=== PATIENT | female | born 1985 | race Caucasian/White ===

== ENCOUNTER 2016-05-23 14:21 | Inpatient (IN) | payer MEDICAID ==
[~2016-05-23] VITALS: Ht 157.5 cm; Wt 90.2 kg
[2016-05-23] VITALS (547 sets, daily range): BP systolic 100–115; BP diastolic 68–88; PULSE 121–142; TEMP 97.6–98.7; O2SAT 65–100
[~2016-05-23 14:21] MED LIST: AMBIEN 5MG TABLE5 MG PO; ATIVAN 0.50.5 MG/TAB PO; DECADRON 1MG TAB1 MG PO; IBU400 MG PO; IPRATROPIUM BROM3 M1 IH; LEVAQUIN 750MG750 M1 PO; NORCO 325 MG-51 TAB PO; NOVLOG SQ; PEPCID 20MG TAB20 MG PO; ROXICODONE 55 MG/TAB PO; SENOKOT S 50 MG1 TAB PO; STOOL SOFTENER100 M2 PO; TAMOXIFEN CITRA20 MG PO
[2016-05-23 15:18] LABS: ALBUMIN 3.5 gm/dL (3.5-5.0); BILIRUBIN,TOTAL 1.1 mg/dL (0.0-1.0); CALCIUM 8.6 mg/dL (8.4-10.2); CREATININE, serum 0.5 mg/dL (0.52-1.25); MAGNESIUM 2.2 mg/dL (1.6-2.3); POTASSIUM 3.4 mmol/L (3.4-5.0); TOTAL PROTEIN 6.5 gm/dL (6.4-8.2)
[2016-05-23 15:28] LABS: BASO % 0.4 % (0.0-2.0); EOS % 0.3 % (0-4.0); GRAN # 5.4 (1.4-6.5); GRAN % 78.8 % (42.2-75.2); HEMATOCRIT 37.2 % (37.0-47.0); HEMOGLOBIN 12.4 g/dl (12.5-16.0); LYMPH % 14.3 % (20.0-51.0); MEAN CELL VOLUME 88 fl (80.0-100.0); MEAN CORPUSCULAR HEMOGLOBIN 29 pg (27.0-31.0); MEAN CORPUSCULAR HGB CONC 33 g/dl (33.0-37.0); MEAN PLATELET VOLUME 9.7 fl (7.4-10.4); MONO # 0.4 (0.1-0.6); MONO % 5.6 % (1.7-9.3); PLATELET COUNT 191 K/mm3 (130-400); RED BLOOD COUNT 4.24 M/mm3 (4.10-5.30); REDCELL DISTRIBUTION WIDTH-CV 14.6 % (11.5-14.5); WHITE BLOOD COUNT 6.8 K/mm3 (4.8-10.8)
[2016-05-23 15:38] LABS: INR 1.2 (0.8-3.0); PROTHROMBIN TIME 13.1 SECONDS (9.7-12.8)
[2016-05-23 15:40] LABS: PARTIAL THROMBOPLASTIN TIME 32.8 SECONDS (26.0-37.0)
[2016-05-23] MEDS ORDERED: SENOKOT8.6 MG PO (17:02)
[2016-05-23 17:17] LABS: ARTERIAL BLD GAS O2 SATURATION 92.7 % (92-100); ARTERIAL BLD GAS TCO2 CT 19.4; ARTERIAL BLOOD GAS BASE EXCESS -2.8 (-2-2); ARTERIAL BLOOD GAS HCO3 18.7 meq/L (22-26); ARTERIAL BLOOD GAS PO2 65.1 mmHg (80-100); ARTERIAL BLOOD GAS PO2T 65.1 (80-100); OXYHEMOGLOBIN 91.7 %
[2016-05-23 17:19] LABS: ATS? YES
[2016-05-23 19:50] LABS: PH 7 (5-8); SQUAMOUS EPITHELIAL 0-2 /hpf; URINE APPEARANCE Clear; URINE BACTERIA None Seen /hpf; URINE BILIRUBIN Negative (NEGATIVE); URINE BLOOD Negative (NEGATIVE); URINE COLOR Straw; URINE GLUCOSE Negative (NEGATIVE); URINE KETONE Negative (NEGATIVE); URINE RBC 0-2 /hpf; URINE UROBILINOGEN Negative (NEGATIVE); URINE WBC 0-2 /hpf
[2016-05-24] VITALS (1403 sets, daily range): BP systolic 99–134; BP diastolic 58–98; PULSE 111–126; TEMP 97–98.2; O2SAT 44–100
[2016-05-25] VITALS (1410 sets, daily range): BP systolic 113–138; BP diastolic 77–87; PULSE 110–125; TEMP 99–99.6; O2SAT 76–100
[2016-05-25 05:38] LABS: MEAN CELL VOLUME 90 fl (80.0-100.0); MEAN CORPUSCULAR HGB CONC 32 g/dl (33.0-37.0); MEAN PLATELET VOLUME 9.4 fl (7.4-10.4); PLATELET COUNT 181 K/mm3 (130-400); REDCELL DISTRIBUTION WIDTH-CV 14.5 % (11.5-14.5); WHITE BLOOD COUNT 5.5 K/mm3 (4.8-10.8)
[2016-05-25 05:57] LABS: HEMATOCRIT 36.7 % (37.0-47.0); HEMOGLOBIN 11.8 g/dl (12.5-16.0); MEAN CORPUSCULAR HEMOGLOBIN 29 pg (27.0-31.0)
[2016-05-25 06:06] LABS: ADJUSTED CALCIUM 9.4 mg/dL (8.4-10.2); ALBUMIN 3.3 gm/dL (3.5-5.0); BILIRUBIN,TOTAL 0.8 mg/dL (0.0-1.0); CALCIUM 8.8 mg/dL (8.4-10.2); CREATININE, serum 0.46 mg/dL (0.52-1.25); POTASSIUM 4.2 mmol/L (3.4-5.0); TOTAL PROTEIN 6.3 gm/dL (6.4-8.2)
[2016-05-26] VITALS (769 sets, daily range): BP systolic 94–128; BP diastolic 52–90; PULSE 103–120; TEMP 98.1–99.3; O2SAT 82–100
[2016-05-27] VITALS (9 sets, daily range): BP systolic 77–138; BP diastolic 50–90; PULSE 107–121; TEMP 97.8–98.6
[2016-05-27 09:57] LABS: CALCIUM 8.8 mg/dL (8.4-10.2); CREATININE, serum 0.55 mg/dL (0.52-1.25); POTASSIUM 3.5 mmol/L (3.4-5.0)
[2016-05-27 10:06] LABS: BASO % 0.2 % (0.0-2.0); EOS # 0.1 (0.0-0.7); GRAN # 3.7 (1.4-6.5); GRAN % 71.2 % (42.2-75.2); LYMPH # 1.1 (1.2-3.4); LYMPH % 21.6 % (20.0-51.0); MEAN CELL VOLUME 89 fl (80.0-100.0); MEAN CORPUSCULAR HGB CONC 33 g/dl (33.0-37.0); MEAN PLATELET VOLUME 9.9 fl (7.4-10.4); MONO # 0.3 (0.1-0.6); PLATELET COUNT 178 K/mm3 (130-400); REDCELL DISTRIBUTION WIDTH-CV 13.9 % (11.5-14.5); WHITE BLOOD COUNT 5.2 K/mm3 (4.8-10.8)
[2016-05-27 10:19] LABS: HEMATOCRIT 35.4 % (37.0-47.0); HEMOGLOBIN 11.8 g/dl (12.5-16.0); MEAN CORPUSCULAR HEMOGLOBIN 30 pg (27.0-31.0)
[2016-05-28 04:16] VITALS: BP 115/62; PULSE 104; TEMP 98.7
[2016-05-28 07:22] VITALS: BP 120/82; PULSE 117; TEMP 98.6
[2016-05-28 12:04] VITALS: BP 125/78; PULSE 121; TEMP 97.9
[2016-05-28 16:34] VITALS: BP 125/73; PULSE 119; TEMP 97.9
[2016-05-28 19:41] VITALS: BP 118/78; PULSE 110; TEMP 97.7
[2016-05-28 23:24] VITALS: BP 129/44; PULSE 114; TEMP 98.7
[2016-05-29 04:28] VITALS: BP 110/63; PULSE 105; TEMP 98.2
[2016-05-29 08:10] VITALS: BP 115/64; PULSE 109; TEMP 97.9
[2016-05-29 12:03] VITALS: BP 135/93; PULSE 116; TEMP 98.4
[2016-05-29] MEDS ORDERED: ELIQUIS 5MG PO (14:58)
== END 2016-05-29 18:45 | disposition home or self-care (01) | DRG 176 ==
LOC: ICU 14:21 → MEDICAL 05-26 13:19
PROVIDERS: Family Medicine
DX: I26.99 Other pulmonary embolism without acute cor pulmonale (principal); I82.433 Acute embolism and thrombosis of popliteal vein, bilateral; C79.51 Secondary malignant neoplasm of bone; C79.31 Secondary malignant neoplasm of brain; C50.911 Malignant neoplasm of unspecified site of right female breast; E87.6 Hypokalemia; R73.9 Hyperglycemia, unspecified; E66.1 Drug-induced obesity; T38.0X5A Adverse effect of glucocorticoids and synthetic analogues, initial encounter
CPT/HCPCS: 99223-AI; 99232-AI; 99233-AI; 99239; J1644; J1650; J7614; J8540

== ENCOUNTER → 2016-05-25 | Outpatient (REF) ==
[~2016-05-25] MED LIST changes: +ACULAR 10 ML10 ML OU; +CALCIUM WITH D31 CTB; +DIAMOX 250MG250 MG PO; +EFFEXOR XR37.5 MG/CA PO; +ELIQUIS 5MG PO; +LANOXIN 0.25M0.25 MG PO; +NORCO 325 MG-101 TAB PO; +OMNIPRED 5 ML5 ML; +PROTONIX20 MG PO; +SENOKOT8.6 MG PO; +SINEQUAN 2525 MG/CAP PO; +ZOLADEX SQ; +ZOMETA4 MG/5 ML IV
== END ==
LOC: ZAIV 06:00
DX: Z02.89 Encounter for other administrative examinations (principal)

== ENCOUNTER → 2016-07-25 | Outpatient (CLI) | payer MEDICAID | LOC: COL.VAS 12:06 | DX: M79.89 Other specified soft tissue disorders (principal) ==

== ENCOUNTER → 2016-07-31 | Outpatient (CLI) | payer MEDICAID | LOC: COL.RAD 07:30 | DX: J90 Pleural effusion, not elsewhere classified (principal); I31.3 Pericardial effusion (noninflammatory); R91.8 Other nonspecific abnormal finding of lung field; C50.111 Malignant neoplasm of central portion of right female breast | CPT/HCPCS: Q9967 ==

== ENCOUNTER → 2016-08-11 | Outpatient (CLI) | payer MEDICAID | LOC: COL.VAS 09:31 | DX: R06.02 Shortness of breath (principal) ==

== ENCOUNTER → 2016-09-21 | Outpatient (CLI) | payer MEDICAID | LOC: COL.RAD 09:30 | DX: C50.011 Malignant neoplasm of nipple and areola, right female breast (principal); C79.31 Secondary malignant neoplasm of brain; C79.52 Secondary malignant neoplasm of bone marrow | CPT/HCPCS: A9585 ==

== ENCOUNTER 2016-12-04 08:12 | Inpatient (IN) | payer MEDICAID ==
[~2016-12-04] VITALS: Ht 157.5 cm; Wt 74.4 kg
[2016-12-04] VITALS (270 sets, daily range): BP systolic 109–135; BP diastolic 61–94; PULSE 115–122; TEMP 97.9–98.4; O2SAT 71–98
[~2016-12-04 08:12] MED LIST changes: -ACULAR 10 ML10 ML OU; -CALCIUM WITH D31 CTB; -DIAMOX 250MG250 MG PO; -EFFEXOR XR37.5 MG/CA PO; -LANOXIN 0.25M0.25 MG PO; -NORCO 325 MG-101 TAB PO; -OMNIPRED 5 ML5 ML; -PROTONIX20 MG PO; -SINEQUAN 2525 MG/CAP PO; -ZOLADEX SQ; -ZOMETA4 MG/5 ML IV
[2016-12-04 09:58] LABS: VENOUS BLOOD GAS SAO2 83.5 % (60-80)
[2016-12-04 09:59] LABS: VENOUS BLOOD GAS SITE VENIPUNCTURE
[2016-12-04 10:06] LABS: BASO % 0.4 % (0.0-2.0); EOS % 0.7 % (0-4.0); GRAN # 3.8 (1.4-6.5); HEMOGLOBIN 12.2 g/dl (12.5-16.0); LYMPH # 1.2 (1.2-3.4); LYMPH % 21.4 % (20.0-51.0); MEAN CELL VOLUME 82 fl (80.0-100.0); MEAN CORPUSCULAR HEMOGLOBIN 27 pg (27.0-31.0); MEAN CORPUSCULAR HGB CONC 33 g/dl (33.0-37.0); MEAN PLATELET VOLUME 9.3 fl (7.4-10.4); MONO # 0.5 (0.1-0.6); MONO % 8.8 % (1.7-9.3); PLATELET COUNT 249 K/mm3 (130-400); RED BLOOD COUNT 4.49 M/mm3 (4.10-5.30); REDCELL DISTRIBUTION WIDTH-CV 14.7 % (11.5-14.5); WHITE BLOOD COUNT 5.6 K/mm3 (4.8-10.8)
[2016-12-04 10:12] LABS: ADJUSTED CALCIUM 9.1 mg/dL (8.4-10.2); ALBUMIN 3.5 gm/dL (3.5-5.0); BILIRUBIN,TOTAL 0.9 mg/dL (0.0-1.0); CALCIUM 8.7 mg/dL (8.4-10.2); CREATININE, serum 0.59 mg/dL (0.52-1.25); TOTAL PROTEIN 6.7 gm/dL (6.4-8.2)
[2016-12-04 10:22] LABS: INR 2.9 (0.8-3.0); PROTHROMBIN TIME 33.3 SECONDS (9.7-12.8)
[2016-12-04] MEDS ORDERED: PROTONIX20 MG PO (10:39)
[2016-12-04] MEDS ORDERED: CALCIUM WITH D31 CTB (10:40)
[2016-12-04] MEDS ORDERED: EFFEXOR XR37.5 MG/CA PO (10:40)
[2016-12-04] MEDS ORDERED: SINEQUAN 2525 MG/CAP PO (10:41)
[2016-12-04] MEDS ORDERED: NORCO 325 MG-101 TAB PO (10:41)
[2016-12-04] MEDS ORDERED: OMNIPRED 5 ML5 ML (10:43)
[2016-12-04] MEDS ORDERED: ZOMETA4 MG/5 ML IV (10:45)
[2016-12-04] MEDS ORDERED: ZOLADEX SQ (10:46)
[2016-12-04 15:19] LABS: MAGNESIUM 2.2 mg/dL (1.6-2.3)
[2016-12-04] MEDS ORDERED: ACULAR 10 ML10 ML OU (15:37)
[2016-12-04 22:26] LABS: PROTHROMBIN TIME 22.5 SECONDS (9.7-12.8)
[2016-12-05] VITALS (904 sets, daily range): BP systolic 110–129; BP diastolic 67–98; PULSE 107–122; TEMP 97.4–99.4; O2SAT 73–100
[2016-12-05 05:27] LABS: BASO % 0.4 % (0.0-2.0); EOS % 0.7 % (0-4.0); GRAN # 3.7 (1.4-6.5); GRAN % 69.2 % (42.2-75.2); LYMPH # 1.1 (1.2-3.4); LYMPH % 20.5 % (20.0-51.0); MEAN CELL VOLUME 85 fl (80.0-100.0); MEAN CORPUSCULAR HGB CONC 32 g/dl (33.0-37.0); MONO # 0.5 (0.1-0.6); MONO % 8.8 % (1.7-9.3); PLATELET COUNT 229 K/mm3 (130-400); RED BLOOD COUNT 4.32 M/mm3 (4.10-5.30); WHITE BLOOD COUNT 5.4 K/mm3 (4.8-10.8)
[2016-12-05 05:28] LABS: HEMATOCRIT 36.5 % (37.0-47.0); HEMOGLOBIN 11.6 g/dl (12.5-16.0); MEAN CORPUSCULAR HEMOGLOBIN 27 pg (27.0-31.0)
[2016-12-05 05:36] LABS: CALCIUM 8.7 mg/dL (8.4-10.2); CREATININE, serum 0.6 mg/dL (0.52-1.25); POTASSIUM 3.9 mmol/L (3.4-5.0)
[2016-12-05 07:32] LABS: PH 6 (5-8); URINE APPEARANCE Hazy; URINE BACTERIA None Seen /hpf; URINE BILIRUBIN Negative (NEGATIVE); URINE BLOOD Negative (NEGATIVE); URINE COLOR Yellow; URINE GLUCOSE Negative (NEGATIVE); URINE KETONE 2+ (NEGATIVE); URINE RBC 0-2 /hpf; URINE UROBILINOGEN Negative (NEGATIVE)
[2016-12-05 10:20] LABS: INR 1.5 (0.8-3.0); PROTHROMBIN TIME 17.3 SECONDS (9.7-12.8)
[2016-12-05 10:22] LABS: PARTIAL THROMBOPLASTIN TIME 32.3 SECONDS (26.0-37.0)
[2016-12-05 11:12] LABS: GLUCOSE,PLEURAL FLUID 89 mg/dL
[2016-12-05 11:17] LABS: PLEURAL FLUID - PMN 5.9 % (0-25)
[2016-12-05 13:00] LABS: PLEURAL FLUID COLOR AMBER
[2016-12-05 13:01] LABS: PLEURAL FLUID APPEARANCE CLOUDY
[2016-12-05 20:03] LABS: PLEURAL FLUID TUBE #1
[2016-12-06] VITALS (286 sets, daily range): BP systolic 108–133; BP diastolic 69–84; PULSE 106–118; TEMP 98–98.8; O2SAT 64–100
[2016-12-06 05:33] LABS: BASO % 0.2 % (0.0-2.0); GRAN # 3.4 (1.4-6.5); GRAN % 73.3 % (42.2-75.2); LYMPH # 0.9 (1.2-3.4); LYMPH % 19.1 % (20.0-51.0); MEAN CELL VOLUME 83 fl (80.0-100.0); MEAN CORPUSCULAR HGB CONC 32 g/dl (33.0-37.0); MEAN PLATELET VOLUME 9.3 fl (7.4-10.4); MONO # 0.3 (0.1-0.6); PLATELET COUNT 241 K/mm3 (130-400); RED BLOOD COUNT 4.37 M/mm3 (4.10-5.30); REDCELL DISTRIBUTION WIDTH-CV 14.6 % (11.5-14.5); WHITE BLOOD COUNT 4.7 K/mm3 (4.8-10.8)
[2016-12-06 05:37] LABS: HEMATOCRIT 36.4 % (37.0-47.0); HEMOGLOBIN 11.6 g/dl (12.5-16.0); MEAN CORPUSCULAR HEMOGLOBIN 27 pg (27.0-31.0)
[2016-12-06 05:45] LABS: ADJUSTED CALCIUM 9.3 mg/dL (8.4-10.2); ALBUMIN 3.1 gm/dL (3.5-5.0); BILIRUBIN,TOTAL 0.8 mg/dL (0.0-1.0); CALCIUM 8.6 mg/dL (8.4-10.2); CREATININE, serum 0.53 mg/dL (0.52-1.25); POTASSIUM 3.9 mmol/L (3.4-5.0); TOTAL PROTEIN 6.3 gm/dL (6.4-8.2)
[2016-12-07 03:20] VITALS: BP 113/71; PULSE 105; TEMP 98.9
[2016-12-07 07:55] VITALS: BP 88/38; PULSE 96; TEMP 98.8
[2016-12-07 10:00] VITALS: BP 118/81
[2016-12-07 15:33] VITALS: BP 92/35; PULSE 111; TEMP 99.3
[2016-12-07 20:21] VITALS: BP 112/71; PULSE 115; TEMP 99.1
[2016-12-07 23:51] VITALS: BP 97/58; PULSE 107; TEMP 99.4
[2016-12-08] VITALS (7 sets, daily range): BP systolic 99–135; BP diastolic 47–99; PULSE 94–111; TEMP 97.3–98.7
[2016-12-09 02:59] VITALS: BP 132/86; PULSE 95; TEMP 99.3
[2016-12-09 07:36] VITALS: BP 112/75; PULSE 93; TEMP 99
[2016-12-09] MEDS ORDERED: DIAMOX 250MG250 MG PO (11:08)
[2016-12-09] MEDS ORDERED: LANOXIN 0.25M0.25 MG PO (11:08)
[2016-12-09 12:27] VITALS: BP 97/68; PULSE 106; TEMP 97.9
[2016-12-09 12:30] VITALS: BP 104/88; PULSE 96
== END 2016-12-09 13:20 | disposition home or self-care (01) | DRG 189 ==
LOC: COL.ER 08:12 → MEDICAL 13:27 → ICU 13:27 → COL.ER 13:27 → MEDICAL 12-06 15:21 → ICU 12-06 15:21 → MEDICAL 12-06 15:21
PROVIDERS: Emergency Medicine; Internal Medicine Pulmonary Disease; Physician Assistant
PROC: 0W9B3ZX Drainage of Left Pleural Cavity, Percutaneous Approach, Diagnostic (ICD-10-PCS; principal; 2016-12-05)
PROC: 0B9P30Z Drainage of Left Pleura with Drainage Device, Percutaneous Approach (ICD-10-PCS; 2016-12-09)
DX: J96.01 Acute respiratory failure with hypoxia (principal); J91.0 Malignant pleural effusion; C78.02 Secondary malignant neoplasm of left lung; C79.51 Secondary malignant neoplasm of bone; C79.31 Secondary malignant neoplasm of brain; Z86.711 Personal history of pulmonary embolism; E87.6 Hypokalemia; C50.919 Malignant neoplasm of unspecified site of unspecified female breast
CPT/HCPCS: 99223-AI; 99231-AI; 99232-AI; 99233-AI; 99239; A7048; A9284; C1729; J1644; J1650; J2250; J2405; J2704; J3010; J3480; J7120; J7512; Q9967

== ENCOUNTER → 2016-12-14 | Outpatient (CLI) | payer MEDICAID ==
[~2016-12-14] MED LIST changes: +ACULAR 10 ML10 ML OU; +CALCIUM WITH D31 CTB; +DIAMOX 250MG250 MG PO; +EFFEXOR XR37.5 MG/CA PO; +LANOXIN 0.25M0.25 MG PO; +NORCO 325 MG-101 TAB PO; +OMNIPRED 5 ML5 ML; +PROTONIX20 MG PO; +SINEQUAN 2525 MG/CAP PO; +ZOLADEX SQ; +ZOMETA4 MG/5 ML IV
== END ==
LOC: COL.CARD 12:54
DX: C50.111 Malignant neoplasm of central portion of right female breast (principal)

== ENCOUNTER → 2016-12-19 | Outpatient (CLI) | payer MEDICAID | LOC: COL.RAD 15:00 | DX: J38.01 Paralysis of vocal cords and larynx, unilateral (principal); C79.51 Secondary malignant neoplasm of bone; J90 Pleural effusion, not elsewhere classified; Z85.3 Personal history of malignant neoplasm of breast | CPT/HCPCS: Q9967 ==

== ENCOUNTER → 2016-12-28 | Outpatient (CLI) | payer MEDICAID | LOC: COL.CARD 11:17 | DX: C50.919 Malignant neoplasm of unspecified site of unspecified female breast (principal); Z51.11 Encounter for antineoplastic chemotherapy ==

== ENCOUNTER → 2017-01-11 | Outpatient (CLI) | payer MEDICAID | LOC: COL.CARD 11:20 | DX: C50.011 Malignant neoplasm of nipple and areola, right female breast (principal); C79.51 Secondary malignant neoplasm of bone; C79.52 Secondary malignant neoplasm of bone marrow; C79.31 Secondary malignant neoplasm of brain; J90 Pleural effusion, not elsewhere classified; Z79.899 Other long term (current) drug therapy | CPT/HCPCS: A9585; J1644 ==

== ENCOUNTER 2017-01-31 08:54 | Outpatient (RCR) | payer MEDICAID ==
[~2017-01-31 08:54] MED LIST changes: -CALCIUM WITH D31 CTB; +CALCIUM WITH D31 CTB PO; -OMNIPRED 5 ML5 ML; +OMNIPRED 5 ML5 ML OU
[2017-03-20] MEDS ORDERED: KEPPRA 500MG500 MG PO (11:36)
[2017-03-20] MEDS ORDERED: ATIVAN 0.50.5 MG/TAB PO (11:37)
[2017-03-20] MEDS ORDERED: DECADRON 4MG TAB4 MG PO (11:38)
[2017-03-20] MEDS ORDERED: CLARITIN 1010 MG/TAB PO (11:39)
[2017-03-20] MEDS ORDERED: EFFEXOR XR75 MG/CAP PO (11:39)
[2017-03-20] MEDS ORDERED: REGLAN 10MG10 MG/TAB PO (11:40)
[2017-03-20] MEDS ORDERED: AMBIEN 10MG10 MG PO (11:43)
[2017-03-22] MEDS ORDERED: FOLIC ACID 11 MG/TA1 PO (14:37)
[2017-03-22] MEDS ORDERED: CEPHALEXIN500 M1 PO (14:38)
[2017-03-22] MEDS ORDERED: PREDNISONE20 MG PO (14:46)
[2017-04-16] MEDS ORDERED: ELIQUIS 5MG PO (08:37)
[2017-04-16] MEDS ORDERED: KEPPRA 500MG500 MG PO (08:38)
[2017-04-16] MEDS ORDERED: DECADRON 1MG TAB1 MG PO (08:40)
[2017-04-16] MEDS ORDERED: EFFEXOR 75M75 MG/TAB PO (08:40)
[2017-04-16] MEDS ORDERED: FOLIC ACID 11 MG/TA1 PO (08:41)
[2017-04-16] MEDS ORDERED: AMBIEN 10MG10 MG PO (08:42)
[2017-04-16] MEDS ORDERED: ATIVAN 0.50.5 MG/TAB PO (08:46)
[2017-04-16] MEDS ORDERED: REGLAN 10MG10 MG/TAB PO (08:46)
== END 2017-05-01 | disposition home or self-care (01) ==
LOC: WSST
DX: R13.10 Dysphagia, unspecified (principal); R49.0 Dysphonia; J38.01 Paralysis of vocal cords and larynx, unilateral; Z85.3 Personal history of malignant neoplasm of breast

== ENCOUNTER → 2017-02-22 | Outpatient (CLI) | payer MEDICAID ==
[~2017-02-22] MED LIST changes: +CALCIUM WITH D31 CTB; -CALCIUM WITH D31 CTB PO; +OMNIPRED 5 ML5 ML; -OMNIPRED 5 ML5 ML OU
== END ==
LOC: COL.RAD 12:30
DX: C79.31 Secondary malignant neoplasm of brain (principal); C79.52 Secondary malignant neoplasm of bone marrow; C50.011 Malignant neoplasm of nipple and areola, right female breast; G93.6 Cerebral edema
CPT/HCPCS: A9585

== ENCOUNTER → 2017-02-26 | Outpatient (CLI) | payer MEDICAID ==
[~2017-02-26] MED LIST changes: +AMBIEN 10MG10 MG PO; -CALCIUM WITH D31 CTB; +CALCIUM WITH D31 CTB PO; +CEPHALEXIN500 M1 PO; +CLARITIN 1010 MG/TAB PO; +DECADRON 4MG TAB4 MG PO; +EFFEXOR XR75 MG/CAP PO; +FOLIC ACID 11 MG/TA1 PO; +KEPPRA 500MG500 MG PO; -OMNIPRED 5 ML5 ML; +OMNIPRED 5 ML5 ML OU; +PREDNISONE20 MG PO; +REGLAN 10MG10 MG/TAB PO
== END ==
LOC: COL.CARD 10:30
DX: I49.9 Cardiac arrhythmia, unspecified (principal); C50.111 Malignant neoplasm of central portion of right female breast

== ENCOUNTER → 2017-04-16 | Day surgery (SDC) | payer MEDICAID ==
[~2017-04-16] VITALS: Ht 157.5 cm; Wt 85.2 kg
[~2017-04-16] MED LIST changes: +EFFEXOR 75M75 MG/TAB PO
[2017-04-16 08:24] VITALS: BP 118/72; PULSE 99; TEMP 98
[2017-04-16 09:47] VITALS: BP 108/64; PULSE 105
[2017-04-16 10:00] VITALS: BP 107/66; PULSE 105
[2017-04-16 10:24] VITALS: BP 110/77
[2017-04-16 10:41] VITALS: PULSE 114
== END ==
LOC: SDCO 07:36
DX: Z45.2 Encounter for adjustment and management of vascular access device (principal); C78.00 Secondary malignant neoplasm of unspecified lung; C77.3 Secondary and unspecified malignant neoplasm of axilla and upper limb lymph nodes; C77.5 Secondary and unspecified malignant neoplasm of intrapelvic lymph nodes; C77.2 Secondary and unspecified malignant neoplasm of intra-abdominal lymph nodes; C79.51 Secondary malignant neoplasm of bone; C79.31 Secondary malignant neoplasm of brain; F32.9 Major depressive disorder, single episode, unspecified; E44.1 Mild protein-calorie malnutrition; D64.9 Anemia, unspecified; D72.819 Decreased white blood cell count, unspecified; Z79.01 Long term (current) use of anticoagulants; Z85.3 Personal history of malignant neoplasm of breast; Z86.711 Personal history of pulmonary embolism; Z82.3 Family history of stroke

== ENCOUNTER → 2017-05-10 | Outpatient (CLI) | payer MEDICAID | LOC: COL.CARD 13:48 | DX: I49.9 Cardiac arrhythmia, unspecified (principal); G40.409 Other generalized epilepsy and epileptic syndromes, not intractable, without status epilepticus ==

== ENCOUNTER → 2017-06-14 | Outpatient (CLI) | payer MEDICAID | LOC: COL.RAD 09:43 | DX: C79.51 Secondary malignant neoplasm of bone (principal); C78.7 Secondary malignant neoplasm of liver and intrahepatic bile duct; C50.111 Malignant neoplasm of central portion of right female breast; R91.8 Other nonspecific abnormal finding of lung field | CPT/HCPCS: Q9967 ==

== ENCOUNTER → 2017-08-15 | Outpatient (CLI) | payer MEDICAID | LOC: COL.RAD 08:07 | DX: R13.13 Dysphagia, pharyngeal phase (principal) ==

== ENCOUNTER 2017-08-28 14:45 | Outpatient (RCR) | payer MEDICAID | END 2017-11-04 | disposition home or self-care (01) | LOC: WSST | DX: R13.12 Dysphagia, oropharyngeal phase (principal) ==

== ENCOUNTER → 2017-09-06 | Outpatient (CLI) | payer MEDICAID | LOC: COL.RAD 09:42 | DX: C78.02 Secondary malignant neoplasm of left lung (principal); C78.01 Secondary malignant neoplasm of right lung; J91.8 Pleural effusion in other conditions classified elsewhere; C79.51 Secondary malignant neoplasm of bone; C78.7 Secondary malignant neoplasm of liver and intrahepatic bile duct; N63.31 Unspecified lump in axillary tail of the right breast; C50.919 Malignant neoplasm of unspecified site of unspecified female breast | CPT/HCPCS: A9585; Q9967 ==

== ENCOUNTER → 2018-01-09 | Outpatient (CLI) | payer MEDICAID | LOC: COL.RAD 01-03 08:30 | DX: C79.51 Secondary malignant neoplasm of bone (principal); C78.7 Secondary malignant neoplasm of liver and intrahepatic bile duct; C50.111 Malignant neoplasm of central portion of right female breast; R91.8 Other nonspecific abnormal finding of lung field | CPT/HCPCS: Q9967 ==

== ENCOUNTER → 2018-04-05 | Outpatient (CLI) | payer MEDICAID | LOC: COL.RAD 10:11 | DX: C50.111 Malignant neoplasm of central portion of right female breast (principal); C79.49 Secondary malignant neoplasm of other parts of nervous system; C79.51 Secondary malignant neoplasm of bone; C78.7 Secondary malignant neoplasm of liver and intrahepatic bile duct; Z95.828 Presence of other vascular implants and grafts | CPT/HCPCS: A9585; Q9967 ==

== ENCOUNTER 2018-05-14 16:30 | Inpatient (IN) | payer MEDICAID ==
[~2018-05-14] VITALS: Ht 157.5 cm; Wt 113.3 kg
[2018-05-14 17:23] LABS: BASO % 0.2 % (0.0-2.0); EOS # 0.1 (0.0-0.7); EOS % 0.6 % (0-4.0); GRAN # 7.1 (1.4-6.5); LYMPH % 11.5 % (20.0-51.0); MEAN CELL VOLUME 90 fl (80.0-100.0); MEAN CORPUSCULAR HGB CONC 30 g/dl (33.0-37.0); MEAN PLATELET VOLUME 9.3 fl (7.4-10.4); MONO # 0.2 (0.1-0.6); MONO % 2.5 % (1.7-9.3); PLATELET COUNT 329 K/mm3 (130-400); RED BLOOD COUNT 3.49 M/mm3 (4.10-5.30); REDCELL DISTRIBUTION WIDTH-CV 19.8 % (11.5-14.5)
[2018-05-14 17:25] LABS: HEMATOCRIT 31.3 % (37.0-47.0); HEMOGLOBIN 9.4 g/dl (12.5-16.0); MEAN CORPUSCULAR HEMOGLOBIN 27 pg (27.0-31.0)
[2018-05-14 17:32] LABS: ALBUMIN 3.6 gm/dL (3.5-5.0); BILIRUBIN,TOTAL 1.1 mg/dL (0.0-1.0); CALCIUM 8.6 mg/dL (8.4-10.2); CREATININE, serum 0.77 mg/dL (0.52-1.25); POTASSIUM 4.2 mmol/L (3.4-5.0); TOTAL PROTEIN 6.5 gm/dL (6.4-8.2)
[2018-05-14 18:20] LABS: COLLECTION METHOD CATHETER
[2018-05-14 18:31] LABS: MUCOUS Present /lpf; PH 5 (5-8); SQUAMOUS EPITHELIAL 0-2 /hpf; URINE APPEARANCE Cloudy; URINE BACTERIA None Seen /hpf; URINE BILIRUBIN Positive (NEGATIVE); URINE BLOOD Negative (NEGATIVE); URINE COLOR Amber; URINE GLUCOSE Negative (NEGATIVE); URINE KETONE 1+ (NEGATIVE); URINE LEUKOCYTE ESTERASE Negative (NEGATIVE); URINE NITRATE Negative (NEGATIVE); URINE PROTEIN(semi-quant) 2+ (NEGATIVE); URINE RBC 0-2 /hpf
[2018-05-14 19:31] VITALS: BP 115/68; PULSE 112; TEMP 98.4
--- NOTE | 2018-05-14 20:00 | NUR ---
Patient up to room from ER. Ambulated to bed, steady gait. Patient states that she uses a walker when ambulating large distances but typically does not use one at home. Mother at bedside. Alert and oriented x3. Patient oriented to room, initial and 5 page complete. IV fluids and antibiotics infused to left AC. Edema noted to bilateral lower extremities. Edema and redness noted to right hand, patient notes that has been ongoing for a couple of weeks now. Jonah pain or further needs at this time.
[2018-05-14] MEDS ORDERED: NEURONTIN300 MG/CAP PO (20:11)
[2018-05-14] MEDS ORDERED: ZYRTEC5 MG PO (20:11)
[2018-05-14 23:26] VITALS: BP 103/51; PULSE 106; TEMP 98.3
[2018-05-15 05:42] VITALS: BP 102/60; PULSE 108; TEMP 98.7
--- NOTE | 2018-05-15 05:58 | NUR ---
Patient has rested well through the night. Minimal needs. IV fluids infusing via pump to right AC. Has been up to restroom, stand by assist with steady gait. Denies pain at this time. Denies further needs at this time. Will report off to day shift.
[2018-05-15 06:09] LABS: MEAN CELL VOLUME 88 fl (80.0-100.0); MEAN CORPUSCULAR HGB CONC 30 g/dl (33.0-37.0); MEAN PLATELET VOLUME 9.6 fl (7.4-10.4); PLATELET COUNT 310 K/mm3 (130-400); RED BLOOD COUNT 3.33 M/mm3 (4.10-5.30); REDCELL DISTRIBUTION WIDTH-CV 19.1 % (11.5-14.5)
[2018-05-15 06:13] LABS: HEMATOCRIT 29.3 % (37.0-47.0); HEMOGLOBIN 8.8 g/dl (12.5-16.0); MEAN CORPUSCULAR HEMOGLOBIN 26 pg (27.0-31.0)
[2018-05-15 06:19] LABS: CALCIUM 8.1 mg/dL (8.4-10.2); CREATININE, serum 0.66 mg/dL (0.52-1.25); POTASSIUM 4.2 mmol/L (3.4-5.0)
[2018-05-15 07:11] LABS: BAND 14 % (0-10); LYMPHOCYTE 4 % (20.0-51.0); METAMYELOCYTE 1 % (0-0); NEUTROPHILS 81 % (42.0-75.2)
[2018-05-15 07:13] LABS: ANISOCYTOSIS 2+; MICROCYTOSIS 2+; PLATELET ESTIMATE NORMAL (NORMAL)
[2018-05-15 07:14] LABS: STOMATOCYTE 1+; TEAR DROP CELLS 1+
[2018-05-15 07:24] VITALS: BP 136/70; PULSE 104; TEMP 98.5
--- NOTE | 2018-05-15 08:00 | NUR ---
PATIENT VERY DROWSY THIS AM AND WANTS TO SLEEP IN.
--- NOTE | 2018-05-15 09:00 | NUR ---
PATIENT MORE AWAKE NOW. VSS. DENIES C/O PAIN. 02 @ 2L PER NC WITH SATS IN MID TO UPPER 90'S. CT OF CHEST ORDERED FOR TODAY. PATIENT ON SEIZURE PRECAUTIONS FOR HX. TELE INPLACE. PATIENT HAS HX OF BREAST CA WITH METS TO BRAIN, LUNGS & BONE. LEFT CHEST PORT NOT ACCESSED. PATIENT REPORTS DIFFICULTY ACCESSING PORT AT TIMES. RIGHT AC IV INFUSING VIA PUMP. HEAD TO TOE ASSESSMENT COMPLETE.
[2018-05-15 12:15] VITALS: BP 103/52; PULSE 103; TEMP 98.9
--- NOTE | 2018-05-15 15:51 | NUR ---
SW attended clinical rounding and met with patient to discuss discharge planning. Patient lives with her parents Lashanda and Robbin in [place]. Her PCP is Dr Juli Clark and she obtains her medications from [facility] in [place]. She has all needed DME at home. There are no anticipated discharge needs at this time.
[2018-05-15 16:31] VITALS: BP 98/51; PULSE 105; TEMP 97.5
--- NOTE | 2018-05-15 19:38 | NUR ---
Pt resting in bed watching TV, talkative and appropriate with answers, shift assessments complete, left Pt bed in lowest position, call light in reach.
[2018-05-15 22:02] VITALS: BP 131/57; PULSE 98; TEMP 99
[2018-05-15 22:49] LABS: MYCOPLASMA IGM ANTIBODIES 0.32 (0.00-0.90)
[2018-05-16] VITALS (7 sets, daily range): BP systolic 100–132; BP diastolic 52–93; PULSE 94–116; TEMP 97.2–99
[2018-05-16 07:27] LABS: MEAN CELL VOLUME 90 fl (80.0-100.0); MEAN CORPUSCULAR HGB CONC 29 g/dl (33.0-37.0); MEAN PLATELET VOLUME 9.7 fl (7.4-10.4); PLATELET COUNT 330 K/mm3 (130-400); RED BLOOD COUNT 3.04 M/mm3 (4.10-5.30); REDCELL DISTRIBUTION WIDTH-CV 19.3 % (11.5-14.5)
[2018-05-16 07:34] LABS: HEMATOCRIT 27.2 % (37.0-47.0); HEMOGLOBIN 7.9 g/dl (12.5-16.0); MEAN CORPUSCULAR HEMOGLOBIN 26 pg (27.0-31.0)
[2018-05-16 07:38] LABS: CALCIUM 8.2 mg/dL (8.4-10.2); CREATININE, serum 0.77 mg/dL (0.52-1.25)
[2018-05-16 08:20] LABS: BAND 11 % (0-10); LYMPHOCYTE 16 % (20.0-51.0); METAMYELOCYTE 3 % (0-0); NEUTROPHILS 70 % (42.0-75.2)
[2018-05-16 08:21] LABS: ANISOCYTOSIS 2+; HYPOCHROMIA 1+
[2018-05-16 08:22] LABS: STOMATOCYTE 2+; TEAR DROP CELLS 1+
[2018-05-16 08:24] LABS: MICROCYTOSIS 1+; PLATELET ESTIMATE NORMAL (NORMAL)
--- NOTE | 2018-05-16 08:40 | NUR ---
Assessment complete. Pt laying in bed, alert to stimuli but drowsy from lack of sleep over night, oriented x 4. O2 at 2 L/min via NC. Breath sounds slightly diminished. BS active x 4. Pt denies pain at this time, reports slight headache with coughing. IVF's infusing per orders through left chest PAC without s/s of complications. No further needs reported. Call light in reach.
--- NOTE | 2018-05-16 08:46 | NUR ---
First visit from the armored vehicle officer. No needs right now.
--- NOTE | 2018-05-16 19:07 | NUR ---
Pt sitting up on side of bed eating supper, denies pain or needs at this time. Report with ANSON Garcia. Call light in reach.
--- NOTE | 2018-05-16 19:43 | NUR ---
PT SITTING AT BEDSIDE WITH NO C/O PAIN OR DISCOMFORT. PT JUST FINISHED EATING SUPPER AND SHE IS WATCHING TV. NO NEEDS AT THIS TIME, CALL LIGHT WITHIN REACH.
--- NOTE | 2018-05-16 22:44 | NUR ---
PT AWAKE IN BED ON HER PHONE. PT DENIES ANY PAIN OR DISCOMFORT. RESP EVEN AND UNLABORED WITH NO C/O SOB. NO NEEDS AT THIS TIME CALL LIGHT WITHIN REACH.
[2018-05-17 02:50] VITALS: BP 102/60; PULSE 106; TEMP 98.2
--- NOTE | 2018-05-17 03:10 | NUR ---
UNEVENTFUL NIGHT FOR PT. PT RESTING/SLEEPING IN BED, RESP EVEN AND UNLABORED, WITH NO S/S OF PAIN OR DISCOMFORT NOTED. CALL LIGHT WITHIN REACH.
[2018-05-17 06:01] LABS: MEAN CELL VOLUME 90 fl (80.0-100.0); MEAN CORPUSCULAR HGB CONC 30 g/dl (33.0-37.0); MEAN PLATELET VOLUME 9.9 fl (7.4-10.4); PLATELET COUNT 352 K/mm3 (130-400); RED BLOOD COUNT 2.99 M/mm3 (4.10-5.30); REDCELL DISTRIBUTION WIDTH-CV 19.4 % (11.5-14.5)
[2018-05-17 06:07] LABS: HEMATOCRIT 26.8 % (37.0-47.0); MEAN CORPUSCULAR HEMOGLOBIN 27 pg (27.0-31.0)
[2018-05-17 06:11] LABS: CALCIUM 8.3 mg/dL (8.4-10.2); CREATININE, serum 0.8 mg/dL (0.52-1.25); POTASSIUM 3.7 mmol/L (3.4-5.0)
[2018-05-17 07:00] LABS: ANISOCYTOSIS 3+; BAND 18 % (0-10); LYMPHOCYTE 14 % (20.0-51.0); NEUTROPHILS 67 % (42.0-75.2); NUCLEATED RED BLOOD CELL 6 (0-6); PLATELET ESTIMATE NORMAL (NORMAL)
[2018-05-17 07:01] LABS: MICROCYTOSIS 1+; OVALOCYTES 1+; STOMATOCYTE 2+; TEAR DROP CELLS 1+
[2018-05-17 07:02] LABS: POLYCHROMASIA 1+
[2018-05-17 07:03] LABS: HYPOCHROMIA 2+
--- NOTE | 2018-05-17 07:24 | NUR ---
Pt is sleeping soundly in bed.
[2018-05-17 07:41] VITALS: BP 126/71; PULSE 97; TEMP 98.4
--- NOTE | 2018-05-17 09:21 | NUR ---
Pt is awake and A/Ox4, sitting up on the side of the bed. She denies pain at this time. Port to left upper chest is free of complications. Resp. are even and unlabored on 3L O2 per NC. Pt awaiting breakfast, denies any other needs.
[2018-05-17] MEDS ORDERED: LEVAQUIN 750MG750 M1 PO (10:52)
--- NOTE | 2018-05-17 11:57 | NUR ---
JONATAN met with patient to discuss o2. Patient would like to use [facility] medical but is worried about the tanks being able to last as long as she may be out of the house, around 12 hours. JONATAN obtained choice form and placed on chart. JONATAN called and left a message for Roseline at [facility].
--- NOTE | 2018-05-17 16:18 | NUR ---
Pt was discharged home with O2. All discharge instructions and paperwork was reviewed with pt and Aunt who expressed understanding and had no questions. Port was deassessed, needle intact. New prescription given. Pt was escorted out of facility by staff.
== END 2018-05-17 16:20 | disposition home or self-care (01) | DRG 871 ==
LOC: COL.ER 16:30 → MEDICAL 18:26
PROVIDERS: Emergency Medicine; Family Medicine; Nurse Practitioner; Nurse Practitioner Family; ADMIT Hospitalist
DX: A41.9 Sepsis, unspecified organism (principal); J18.9 Pneumonia, unspecified organism; J96.01 Acute respiratory failure with hypoxia; C79.31 Secondary malignant neoplasm of brain; C79.51 Secondary malignant neoplasm of bone; C78.02 Secondary malignant neoplasm of left lung; C78.01 Secondary malignant neoplasm of right lung; C50.011 Malignant neoplasm of nipple and areola, right female breast; Z86.711 Personal history of pulmonary embolism; Z79.01 Long term (current) use of anticoagulants; F41.8 Other specified anxiety disorders; D64.9 Anemia, unspecified
CPT/HCPCS: 99223-AI; 99232-AI; 99239; J0692; J1100; J1644; J1956; J2185; J2405; J3010; J3370; J7030; J7050; J8540; Q9967

== ENCOUNTER 2018-06-06 17:01 | Inpatient (IN) | payer MEDICAID ==
[~2018-06-06] VITALS: Ht 154.9 cm; Wt 115.4 kg
[~2018-06-06 17:01] MED LIST changes: -EFFEXOR 75M75 MG/TAB PO; +NEURONTIN300 MG/CAP PO; +ZYRTEC5 MG PO
[2018-06-06 17:12] VITALS: BP 110/72; PULSE 113; TEMP 99.2
[2018-06-06] MEDS ORDERED: PROAIR HFA0.09 MG/AC IH (17:23)
[2018-06-06] MEDS ORDERED: LEVAQUIN 5500 MG/TA1 PO (17:23)
[2018-06-06] MEDS ORDERED: DECADRON 4MG TAB4 MG PO (17:26)
[2018-06-06] MEDS ORDERED: FENTANYL 25 MCG TD (17:30)
[2018-06-06] MEDS ORDERED: ZANTAC 150MG T150 MG PO (17:38)
--- NOTE | 2018-06-06 17:55 | NUR ---
Pt arrives to medical as a direct admission. Dr. Keller in to see patient, awaiting orders. Med list reviewed and updated with new doses since discharge. Mother at bedside. All questions answered in depth.
[2018-06-06 18:50] LABS: BASO % 0.2 % (0.0-2.0); EOS % 0.3 % (0-4.0); GRAN # 5.1 (1.4-6.5); GRAN % 84.7 % (42.2-75.2); LYMPH # 0.6 (1.2-3.4); LYMPH % 9.6 % (20.0-51.0); MEAN CELL VOLUME 83 fl (80.0-100.0); MEAN CORPUSCULAR HGB CONC 29 g/dl (33.0-37.0); MEAN PLATELET VOLUME 9.5 fl (7.4-10.4); MONO # 0.3 (0.1-0.6); MONO % 4.4 % (1.7-9.3); PLATELET COUNT 266 K/mm3 (130-400); REDCELL DISTRIBUTION WIDTH-CV 20.8 % (11.5-14.5)
[2018-06-06 18:51] LABS: HEMATOCRIT 31.7 % (37.0-47.0); HEMOGLOBIN 9.2 g/dl (12.5-16.0); MEAN CORPUSCULAR HEMOGLOBIN 24 pg (27.0-31.0)
[2018-06-06 19:01] LABS: ALBUMIN 3.8 gm/dL (3.5-5.0); BILIRUBIN,TOTAL 0.7 mg/dL (0.0-1.0); CALCIUM 8.6 mg/dL (8.4-10.2); CREATININE, serum 0.77 mg/dL (0.52-1.25); MAGNESIUM 2.4 mg/dL (1.6-2.3); POTASSIUM 3.8 mmol/L (3.4-5.0)
--- NOTE | 2018-06-06 19:16 | NUR ---
Pt resting in bed with call light within reach. IVF infusing to port accessed by Daniele StonerHybrid Car Mechanic. Denies needs at this time. Report given to ANSON Villafuerte.
[2018-06-06 19:28] VITALS: BP 135/80; PULSE 115; TEMP 98.5
--- NOTE | 2018-06-06 21:44 | NUR ---
PT REPORTED NO PAIN. SHIFT ASSESSMENT COMPLETE. NO SOA. NO NEEDS AT THIS TIME. CALL LIGHT IN REACH
[2018-06-06 23:02] LABS: COLLECTION METHOD CLEAN CATCH
[2018-06-06 23:10] LABS: MUCOUS Present /lpf; PH 6 (5-8); SQUAMOUS EPITHELIAL 0-2 /hpf; URINE APPEARANCE Clear; URINE BACTERIA None Seen /hpf; URINE BILIRUBIN Negative (NEGATIVE); URINE BLOOD Negative (NEGATIVE); URINE COLOR Yellow; URINE GLUCOSE Negative (NEGATIVE); URINE KETONE Trace (NEGATIVE); URINE LEUKOCYTE ESTERASE Negative (NEGATIVE); URINE NITRATE Negative (NEGATIVE); URINE PROTEIN(semi-quant) 1+ (NEGATIVE); URINE RBC 0-2 /hpf; URINE UROBILINOGEN Negative (NEGATIVE)
[2018-06-07] VITALS (10 sets, daily range): BP systolic 97–126; BP diastolic 43–75; PULSE 96–118; TEMP 98.5–99.2
--- NOTE | 2018-06-07 05:40 | NUR ---
pt o2 sat was 83% at 2L. increased o2 to 6L sat at 93%. will continue to monitor
--- NOTE | 2018-06-07 07:22 | NUR ---
pt on 5L o2, o2 sat 93%. no soa. no pain. pt slept throughout night, no needs at this time. call light in reach. report given to ANSON Metz
[2018-06-07 07:34] LABS: HEMATOCRIT 26.7 % (37.0-47.0); HEMOGLOBIN 7.5 g/dl (12.5-16.0); MEAN CELL VOLUME 85 fl (80.0-100.0); MEAN CORPUSCULAR HEMOGLOBIN 24 pg (27.0-31.0); MEAN CORPUSCULAR HGB CONC 28 g/dl (33.0-37.0); MEAN PLATELET VOLUME 10.1 fl (7.4-10.4); PLATELET COUNT 201 K/mm3 (130-400); RED BLOOD COUNT 3.15 M/mm3 (4.10-5.30); REDCELL DISTRIBUTION WIDTH-CV 20.7 % (11.5-14.5)
[2018-06-07 07:47] LABS: BILIRUBIN,TOTAL 0.3 mg/dL (0.0-1.0); CREATININE, serum 0.74 mg/dL (0.52-1.25); MAGNESIUM 2.2 mg/dL (1.6-2.3); TOTAL PROTEIN 5.8 gm/dL (6.4-8.2)
[2018-06-07 07:58] LABS: BAND 12 % (0-10); BASOPHIL 1 % (0-2); LYMPHOCYTE 16 % (20.0-51.0); NEUTROPHILS 62 % (42.0-75.2); NUCLEATED RED BLOOD CELL 2 (0-6); PLATELET ESTIMATE NORMAL (NORMAL)
[2018-06-07 07:59] LABS: ANISOCYTOSIS 1+
[2018-06-07 08:01] LABS: HYPOCHROMIA 2+; POLYCHROMASIA 1+
--- NOTE | 2018-06-07 09:00 | NUR ---
Pt resting in bed with call light within reach. Assessment complete and charted. Still has a productive cough. On 5L O2 via NC. Denies further needs at this time. IVF infusing to port without complications.
--- NOTE | 2018-06-07 13:50 | NUR ---
SW attended clinical rounding and met with patient to discuss discharge and readmission. Patient lives in [place] with her parents. She is disabled and currently receiving treatment for cancer. Patient was set up with o2 through [facility] last discharge however she switched to [facility] after she got home. [facility] reports they are providing her o2. She has been using 2-3 liters. A report was made by [facility] worker due to the condition of the home (intake [id number]). JONATAN called Juan Miguel at [facility] and left a voicemail to see what had come of the investigation. Patients PCP is Dr Juli Clark and she obtains her medications from [facility] in [place]. JONATAN will continue to follow to assist in DC planning.
--- NOTE | 2018-06-07 18:27 | NUR ---
Pt had uneventful day. Resting in bed with call light within reach, IVF and ABO's infusing as ordered. Denies further needs at this time; will continue to monitor.
--- NOTE | 2018-06-07 18:36 | NUR ---
Report given to ANSON Villafuerte. Pt resting in bed.
--- NOTE | 2018-06-07 22:46 | NUR ---
pt sitting on bed. no pain. lungs are diminished with some wheezing throughout. soa on exertion. pt o2 sat 98%, decreased o2 from 5L to 4L- O2 sat is now at 97%. will continue to monitor O2. pt right upper extremity has 1+ swelling- pt reports it as chronic. no needs at this time .call light in reach.
[2018-06-08 03:55] VITALS: BP 128/75; PULSE 109
--- NOTE | 2018-06-08 05:23 | NUR ---
pt had an uneventful night. pt on 4L o2 sat at 96%. c/o left hip pain, prn meds given. reported no being able to sleep, unable to get confortable. no needs at this time. call light in reach
--- NOTE | 2018-06-08 06:10 | NUR ---
DECREASED o2 TO 3L. SAT AT 96%.NO C/O SOA. NO NEEDS AT THIS TIME. CALL LIGHT IN REACH
[2018-06-08 06:17] LABS: MEAN CELL VOLUME 85 fl (80.0-100.0); MEAN CORPUSCULAR HGB CONC 29 g/dl (33.0-37.0); MEAN PLATELET VOLUME 10.6 fl (7.4-10.4); PLATELET COUNT 225 K/mm3 (130-400); RED BLOOD COUNT 3.02 M/mm3 (4.10-5.30); REDCELL DISTRIBUTION WIDTH-CV 20.6 % (11.5-14.5)
[2018-06-08 06:18] LABS: HEMATOCRIT 25.8 % (37.0-47.0); HEMOGLOBIN 7.4 g/dl (12.5-16.0); MEAN CORPUSCULAR HEMOGLOBIN 25 pg (27.0-31.0)
[2018-06-08 06:21] LABS: CALCIUM 7.9 mg/dL (8.4-10.2); CREATININE, serum 0.63 mg/dL (0.52-1.25); MAGNESIUM 2.1 mg/dL (1.6-2.3); POTASSIUM 3.5 mmol/L (3.4-5.0)
[2018-06-08 06:41] LABS: ANISOCYTOSIS 3+; BAND 1 % (0-10); BASOPHIL 1 % (0-2); EOSINOPHIL 1 % (0-4); HYPOCHROMIA 2+; LYMPHOCYTE 23 % (20.0-51.0); METAMYELOCYTE 1 % (0-0); MYELOCYTE 4 % (0-0); NEUTROPHILS 68 % (42.0-75.2); NUCLEATED RED BLOOD CELL 1 (0-6); PLATELET ESTIMATE NORMAL (NORMAL)
[2018-06-08 06:42] LABS: POLYCHROMASIA 1+; TEAR DROP CELLS 1+
--- NOTE | 2018-06-08 07:29 | NUR ---
report given to rocky betancourt
[2018-06-08 07:33] VITALS: BP 111/59; PULSE 100; TEMP 98.6
--- NOTE | 2018-06-08 09:27 | NUR ---
Sitting at the side of the bed working with physical therapy at this time.
--- NOTE | 2018-06-08 09:47 | NUR ---
Upon entering room, patient sitting up on side of bed. Is smiling and talkative. Administered medications, patient did state she was having left hip pain. Offered pain medication and accepted. Was ready to eat breakfast. Offered no other complaints.
[2018-06-08 11:23] VITALS: BP 118/42; PULSE 102; TEMP 98.8
[2018-06-08 15:32] VITALS: BP 141/90; PULSE 111; TEMP 98.4
[2018-06-08 18:57] VITALS: BP 129/87; PULSE 102; TEMP 98.3
--- NOTE | 2018-06-08 22:14 | NUR ---
PT RESTING AT EDGE OF BED. BILATERAL FEET SWELLING 1+. RIGHT ARM CHRONIC SWELLING AT A 1+. 7/10 pain in left hip radiating to left knee. meds given . nop soa. no needs at this time. call light in reach
[2018-06-08 23:49] VITALS: BP 132/75; PULSE 105; TEMP 98.2
[2018-06-09] VITALS (8 sets, daily range): BP systolic 82–140; BP diastolic 56–93; PULSE 106–122; TEMP 97.2–99.3
--- NOTE | 2018-06-09 00:57 | NUR ---
PT RESTING IN BED, REPORTS FEELING RESTLESS. 4/10 PAIN IN LEFT HIP. PT REFUSED PAIN MEDS/HEAT PACK. NO NEEDS AT THIS TIME. CALL LIGHT IN REACH
--- NOTE | 2018-06-09 05:15 | NUR ---
pt sleeping. no needs at this time call light in reach
--- NOTE | 2018-06-09 05:47 | NUR ---
pt o2 dropped to 89% on her 2L. this nurse went to assess, pt o2 was then at 91%. will continue to monitor.
[2018-06-09 06:24] LABS: MEAN CELL VOLUME 87 fl (80.0-100.0); MEAN CORPUSCULAR HGB CONC 28 g/dl (33.0-37.0); PLATELET COUNT 246 K/mm3 (130-400)
[2018-06-09 06:25] LABS: HEMATOCRIT 26.8 % (37.0-47.0); HEMOGLOBIN 7.5 g/dl (12.5-16.0); MEAN CORPUSCULAR HEMOGLOBIN 24 pg (27.0-31.0)
[2018-06-09 06:38] LABS: CALCIUM 7.9 mg/dL (8.4-10.2); CREATININE, serum 0.6 mg/dL (0.52-1.25); POTASSIUM 3.8 mmol/L (3.4-5.0)
--- NOTE | 2018-06-09 06:38 | NUR ---
pt had an uneventful night. 5/10 pain- reported fentynal patch helping. no needs at this time. call light in reach
[2018-06-09 06:51] LABS: ANISOCYTOSIS 2+; BAND 1 % (0-10); EOSINOPHIL 1 % (0-4); HYPOCHROMIA 1+; LYMPHOCYTE 23 % (20.0-51.0); MYELOCYTE 3 % (0-0); NEUTROPHILS 69 % (42.0-75.2); NUCLEATED RED BLOOD CELL 2 (0-6); PLATELET ESTIMATE NORMAL (NORMAL)
[2018-06-09 06:52] LABS: OVALOCYTES 1+; TEAR DROP CELLS 1+
[2018-06-09 06:53] LABS: POLYCHROMASIA 1+
--- NOTE | 2018-06-09 06:54 | NUR ---
report given to asia hidalgo
--- NOTE | 2018-06-09 07:30 | NUR ---
Sleeping soundly at this time. The call light is in place. All IV tubing and caps were changed at this time.
--- NOTE | 2018-06-09 15:22 | NUR ---
Referral Update: SW went into talk with patient about home health services. Patient reports that her family has dogs in the home that would impede services. SW asked about kennaling or alternate room while HH is in the home. Patient denies being able to contian the dogs for home health to assist her. SW educated patient about discharge for tomorrow. Patient indicated that he parents what her sickness resolved before she leave. SW educated that the antibiotics will take a while before she is feeling better but it is not something that we could keep her in the hospital for will she is taking antibiotics. Offered placement due to patient's reported to not feel safe going home. Patient declined both placement and homehealth coverage. Patient appears to understand that information discussed. Nothing follows.
--- NOTE | 2018-06-09 20:40 | NUR ---
Shift assessment complete. Pt resting in bed, awake, a&o, cooperative c cares. Pt reports ch pain to legs, denies other c/o. Portacath noted to L chest, patent c good blood return. O2 per NC. Pt denies further needs at this time. Call light in reach, will monitor.
[2018-06-10 03:55] VITALS: BP 135/87; PULSE 111; TEMP 97.7
[2018-06-10 05:59] LABS: MEAN CELL VOLUME 88 fl (80.0-100.0); MEAN CORPUSCULAR HGB CONC 28 g/dl (33.0-37.0); MEAN PLATELET VOLUME 9.7 fl (7.4-10.4); PLATELET COUNT 261 K/mm3 (130-400); RED BLOOD COUNT 3.03 M/mm3 (4.10-5.30); REDCELL DISTRIBUTION WIDTH-CV 21.2 % (11.5-14.5)
[2018-06-10 06:01] LABS: HEMATOCRIT 26.5 % (37.0-47.0); HEMOGLOBIN 7.3 g/dl (12.5-16.0); MEAN CORPUSCULAR HEMOGLOBIN 24 pg (27.0-31.0)
[2018-06-10 06:14] LABS: CREATININE, serum 0.65 mg/dL (0.52-1.25); POTASSIUM 3.7 mmol/L (3.4-5.0)
[2018-06-10 06:34] LABS: ANISOCYTOSIS 2+; BAND 4 % (0-10); LYMPHOCYTE 22 % (20.0-51.0); METAMYELOCYTE 1 % (0-0); MYELOCYTE 2 % (0-0); NEUTROPHILS 67 % (42.0-75.2); NUCLEATED RED BLOOD CELL 3 (0-6); PLATELET ESTIMATE NORMAL (NORMAL)
[2018-06-10 06:35] LABS: HYPOCHROMIA 1+; POLYCHROMASIA 1+
[2018-06-10 07:26] VITALS: BP 127/75; PULSE 102; TEMP 98.6
--- NOTE | 2018-06-10 09:00 | NUR ---
Assessment complete. Pt laying in bed, resp even and unlabored, O2 at 3 L/min via NC. No facial grimace, muscles relaxed. IVF's infusing per orders through PAC without s/s of complications. Call light in reach.
[2018-06-10] MEDS ORDERED: LEVAQUIN 750MG750 M1 PO (09:42)
[2018-06-10] MEDS ORDERED: CHERATUSSIN AC240 ML PO (09:44)
--- NOTE | 2018-06-10 11:01 | NUR ---
Patient is dc home today with family support.
[2018-06-10 11:35] VITALS: BP 119/77; PULSE 105; TEMP 98.5
--- NOTE | 2018-06-10 12:30 | NUR ---
Pt having intermittent coughing episodes, requests PRN cough medication which is administered. Pt also reports pain of 6 out of 10, PRN pain medication administered per orders. IVF's stopped per discharge orders and PAC needle deaccessed. Pt eating, will call when ready for discharge paperwork.
--- NOTE | 2018-06-10 15:53 | NUR ---
Discharge instructions reviewed with pt regarding new medications and follow-up appointments. Questions invited and answered. Pt verbalizes understanding, discharged home, escorted out of facility via WC accompanied by Aide and pt's family.
== END 2018-06-10 16:02 | disposition home or self-care (01) | DRG 193 ==
LOC: MEDICAL 17:01
PROVIDERS: Hospitalist; Internal Medicine; Nurse Practitioner Family; Physician Assistant
DX: J18.9 Pneumonia, unspecified organism (principal); J96.21 Acute and chronic respiratory failure with hypoxia; C78.01 Secondary malignant neoplasm of right lung; C78.02 Secondary malignant neoplasm of left lung; C79.31 Secondary malignant neoplasm of brain; C79.51 Secondary malignant neoplasm of bone; C78.7 Secondary malignant neoplasm of liver and intrahepatic bile duct; J06.9 Acute upper respiratory infection, unspecified; B97.4 Respiratory syncytial virus as the cause of diseases classified elsewhere; C50.011 Malignant neoplasm of nipple and areola, right female breast; Z86.711 Personal history of pulmonary embolism; Z79.01 Long term (current) use of anticoagulants; E87.6 Hypokalemia; G40.909 Epilepsy, unspecified, not intractable, without status epilepticus; F41.8 Other specified anxiety disorders
CPT/HCPCS: 99222-AI; 99231-AI; 99232-AI; 99239; A4216; J0692; J1956; J3370; J7030; J7050; J8540; Q9967

== ENCOUNTER → 2018-07-04 | Outpatient (CLI) | payer MEDICAID ==
[~2018-07-04] MED LIST changes: +CHERATUSSIN AC240 ML PO; +FENTANYL 25 MCG TD; +LEVAQUIN 5500 MG/TA1 PO; +PROAIR HFA0.09 MG/AC IH; +ZANTAC 150MG T150 MG PO
== END ==
LOC: COL.RAD 08:04
DX: C50.111 Malignant neoplasm of central portion of right female breast (principal); C79.51 Secondary malignant neoplasm of bone; C78.7 Secondary malignant neoplasm of liver and intrahepatic bile duct
CPT/HCPCS: A9585; Q9967

== ENCOUNTER → 2018-07-18 | Outpatient (CLI) | payer MEDICAID | LOC: EUO 11:47 | DX: C50.111 Malignant neoplasm of central portion of right female breast (principal) ==

== ENCOUNTER 2018-08-07 12:43 | Outpatient (RCR) | payer MEDICARE, MEDICAID ==
[2018-10-21] MEDS ORDERED: DECADRON 4MG TAB4 MG PO (14:44)
[2018-10-21] MEDS ORDERED: VITAMIN C500 MG PO (17:29)
[2018-10-21] MEDS ORDERED: FENTANYL 100MCG TD (17:32)
[2018-10-21] MEDS ORDERED: LASIX 40MG TABL40 MG PO (17:35)
[2018-10-21] MEDS ORDERED: K-DUR20 MEQ PO (17:36)
[2018-10-21] MEDS ORDERED: ATROVENT NASAL15 ML NS (17:37)
[2018-10-23] MEDS ORDERED: DECADRON 4MG TAB4 MG PO (11:21)
== END 2018-11-05 | disposition home or self-care (01) ==
LOC: WSST
DX: R13.12 Dysphagia, oropharyngeal phase (principal)

== ENCOUNTER → 2018-08-15 | Outpatient (CLI) | payer MEDICARE, MEDICAID | LOC: COL.RAD 08:05 | DX: R13.12 Dysphagia, oropharyngeal phase (principal) ==

== ENCOUNTER → 2018-10-02 | Outpatient (CLI) | payer MEDICARE, MEDICAID | LOC: COL.RAD 07:59 | DX: C50.111 Malignant neoplasm of central portion of right female breast (principal); C79.51 Secondary malignant neoplasm of bone; C78.7 Secondary malignant neoplasm of liver and intrahepatic bile duct; J18.1 Lobar pneumonia, unspecified organism; Z95.9 Presence of cardiac and vascular implant and graft, unspecified | CPT/HCPCS: A9585; Q9967 ==

== ENCOUNTER → 2018-10-10 | Outpatient (CLI) | payer MEDICARE, MEDICAID | LOC: COL.VAS 13:04 | DX: Z51.11 Encounter for antineoplastic chemotherapy (principal); C50.211 Malignant neoplasm of upper-inner quadrant of right female breast ==

== ENCOUNTER → 2018-10-15 | Outpatient (CLI) | payer MEDICARE, MEDICAID | LOC: ZCOL.LAB 14:03 | DX: R93.89 Abnormal findings on diagnostic imaging of other specified body structures (principal) ==

== ENCOUNTER 2018-11-09 14:12 | Inpatient (IN) | payer MEDICARE, MEDICAID ==
[~2018-11-09] VITALS: Ht 154.9 cm; Wt 133.6 kg
[2018-11-09] VITALS (362 sets, daily range): BP systolic 94–136; BP diastolic 68–90; PULSE 117–123; TEMP 07.9; O2SAT 88–100
[~2018-11-09 14:12] MED LIST changes: +ATROVENT NASAL15 ML NS; +FENTANYL 100MCG TD; +K-DUR20 MEQ PO; +LASIX 40MG TABL40 MG PO; +PROTONIX 40MG T40 MG PO; -PROTONIX20 MG PO; +VITAMIN C500 MG PO
[2018-11-09 15:58] LABS: MEAN CELL VOLUME 91 fl (80.0-100.0); MEAN CORPUSCULAR HEMOGLOBIN 28 pg (27.0-31.0); MEAN CORPUSCULAR HGB CONC 31 g/dl (33.0-37.0); MEAN PLATELET VOLUME 10.3 fl (7.4-10.4); PLATELET COUNT 231 K/mm3 (130-400); RED BLOOD COUNT 3.59 M/mm3 (4.10-5.30); REDCELL DISTRIBUTION WIDTH-CV 16.4 % (11.5-14.5)
[2018-11-09 16:02] LABS: HEMATOCRIT 32.8 % (37.0-47.0)
[2018-11-09 16:09] LABS: INR 1.2 (0.8-3.0); PROTHROMBIN TIME 14.5 SECONDS (9.7-12.8)
[2018-11-09 16:14] LABS: ALANINE AMINOTRANSFERASE 101 U/L (9-52); ALBUMIN 3.3 gm/dL (3.5-5.0); ALKALINE PHOSPHATASE 194 U/L (50-136); ANION GAP 16 mmol/L (7-16); BILIRUBIN,TOTAL 0.7 mg/dL (0.0-1.0); BLOOD UREA NITROGEN 11 mg/dL (7-17); C-REACTIVE PROTEIN 8.4 mg/dL (0.0-0.9); CALCIUM 9.5 mg/dL (8.4-10.2); CARBON DIOXIDE 29 mmol/L (22-30); CHLORIDE 93 mmol/L (98-107); CREATININE, serum 0.64 (0.52-1.25); GLUCOSE 314 mg/dL (74-106); LIPASE 32 U/L (23-300); POTASSIUM 3.6 mmol/L (3.4-5.0); SODIUM 138 mmol/L (137-145)
[2018-11-09 16:18] LABS: AST,SGOT 58 U/L (15-37)
[2018-11-09 16:25] LABS: BAND 17 % (0-10); LYMPHOCYTE 12 % (20.0-51.0); METAMYELOCYTE 2 % (0-0); MYELOCYTE 1 % (0-0); NEUTROPHILS 64 % (42.0-75.2); NUCLEATED RED BLOOD CELL 1 (0-6); PLATELET ESTIMATE NORMAL (NORMAL)
[2018-11-09 16:26] LABS: TROPONIN-I < 0.012 ng/mL (0.000-0.035)
[2018-11-09 16:29] LABS: STOMATOCYTE 2+
[2018-11-09 17:03] LABS: COLLECTION METHOD CLEAN CATCH
[2018-11-09 17:25] LABS: MUCOUS Present /lpf; PH 7 (5-8); SQUAMOUS EPITHELIAL None Seen /hpf; URINE APPEARANCE Clear; URINE BACTERIA None Seen /hpf; URINE BILIRUBIN Negative (NEGATIVE); URINE BLOOD Negative (NEGATIVE); URINE COLOR Straw; URINE GLUCOSE 1+ (NEGATIVE); URINE KETONE Negative (NEGATIVE); URINE LEUKOCYTE ESTERASE Negative (NEGATIVE); URINE NITRATE Negative (NEGATIVE); URINE PROTEIN(semi-quant) Negative (NEGATIVE); URINE RBC 0-2 /hpf; URINE UROBILINOGEN Negative (NEGATIVE)
[2018-11-09] MEDS ORDERED: DECADRON 4MG TAB4 MG PO (17:36)
[2018-11-09] MEDS ORDERED: DECADRON 1MG TAB1 MG (17:37)
[2018-11-09] MEDS ORDERED: ATROVENT NASAL15 ML NS (17:39)
[2018-11-09] MEDS ORDERED: ROXICODONE 55 MG/TAB (17:39)
[2018-11-09] MEDS ORDERED: ZOMETA4 MG/5 ML IV (19:26)
[2018-11-09] MEDS ORDERED: HALAVEN0.5 MG/ML IV (19:26)
[2018-11-09] MEDS ORDERED: NEULASTA (19:27)
--- NOTE | 2018-11-09 20:15 | NUR ---
Reporting pain around urethra after placement of tyler. Pain is burning and worse with cough and movement. Reports feeling like she is urinating around the tubing. Pad under bottom checked and noted to be dry. Hospitalist notified, received order for ditropan. Will continue to monitior.
[2018-11-10] VITALS (1278 sets, daily range): BP systolic 97–133; BP diastolic 52–87; PULSE 125–130; TEMP 97.4–99.6; O2SAT 35–100
--- NOTE | 2018-11-10 01:00 | NUR ---
02 desaturating to upper 80's to low 90's. Placed on 2L NC.
--- NOTE | 2018-11-10 04:49 | NUR ---
02 90-92% on 2L, increased to 3L now 96%. Lungs auscultated with course sounds in upper right with expiratory wheezes. Bases still course bilaterally. Patient reporting cought since arrival, however appears to have increased in frequency. Reports sometimes productive and sometimes dry. Patient has chest X ray ordered for the am. Notified hosptitalist. Will just contine to monitor at this time.
[2018-11-10 05:35] LABS: MEAN CELL VOLUME 90 fl (80.0-100.0); MEAN CORPUSCULAR HGB CONC 31 g/dl (33.0-37.0); PLATELET COUNT 204 K/mm3 (130-400); RED BLOOD COUNT 3.33 M/mm3 (4.10-5.30); REDCELL DISTRIBUTION WIDTH-CV 16.3 % (11.5-14.5)
[2018-11-10 05:36] LABS: HEMATOCRIT 30.1 % (37.0-47.0); HEMOGLOBIN 9.2 g/dl (12.5-16.0); MEAN CORPUSCULAR HEMOGLOBIN 28 pg (27.0-31.0)
[2018-11-10 05:43] LABS: BILIRUBIN,TOTAL 0.8 mg/dL (0.0-1.0); CALCIUM 8.2 mg/dL (8.4-10.2); CREATININE, serum 0.77 (0.52-1.25); POTASSIUM 3.1 mmol/L (3.4-5.0); TOTAL PROTEIN 5.6 gm/dL (6.4-8.2)
[2018-11-10 06:07] LABS: ANISOCYTOSIS 1+; BAND 47 % (0-10); HYPOCHROMIA 1+; LYMPHOCYTE 8 % (20.0-51.0); METAMYELOCYTE 13 % (0-0); NEUTROPHILS 25 % (42.0-75.2); PLATELET ESTIMATE NORMAL (NORMAL)
--- NOTE | 2018-11-10 07:30 | NUR ---
Patient report recieved from ANSON Lynch. Patient participates and denies questions at this time. NS infusing at ordered rate to left chest PAC with dressing CDI. Potassium IV replacement running at ordered rate and y-sited with MIVF. Frey catheter with positive UO noted. Patient O2 saturation <90% on current 3L per NC. O2 titrated to 4L per NC. Patient denies dyspnea. Bed in low and locked position, call light within reach, rails up x2. Care assumed.
--- NOTE | 2018-11-10 07:31 | NUR ---
Report given to ANSON Carver. Patient care transfered.
--- NOTE | 2018-11-10 07:37 | NUR ---
Patient changed to OM per RT secondary to O2 saturations maintained <92% on NC.
--- NOTE | 2018-11-10 07:40 | NUR ---
Patient with O2 saturations between 88-93% with correlating pleth noted. RT notified. Patient denies increased work of breathing. Patient increased to 10L per OM by RT. Care ongoing.
--- NOTE | 2018-11-10 07:51 | NUR ---
Dr. Camilo notified of increased O2 demand. TORB to include Airvo2 per RT, stat ABG, and lasix 40mg IV now. RT notified of orders.
[2018-11-10 08:29] LABS: ARTERIAL BLD GAS O2 SATURATION 87.3 % (92-100); ARTERIAL BLD GAS TCO2 CT 27.8; ARTERIAL BLOOD GAS HCO3 26.8 meq/L (22-26); ARTERIAL BLOOD GAS PCO2 33.7 mmHg (35-45); ARTERIAL BLOOD GAS PO2 54.1 mmHg (80-100); ARTERIAL BLOOD GAS pH 7.52 (7.35-7.45)
--- NOTE | 2018-11-10 08:51 | NUR ---
Airvo2 initiated by RT at this time at 35L/min and 50%FiO2.
--- NOTE | 2018-11-10 08:52 | NUR ---
Dr. Camilo rounds at this time.
--- NOTE | 2018-11-10 08:56 | NUR ---
Dr. Camilo aware of patient's increased HR. No new orders at this time.
--- NOTE | 2018-11-10 09:33 | NUR ---
Bedside RLE duplex completed by tech at this time.
--- NOTE | 2018-11-10 09:35 | NUR ---
Continued tachycardia discussed with Dr. Camilo and ordered recieved for 500ml bolus at this time. See associated documentation.
--- NOTE | 2018-11-10 10:37 | NUR ---
Patient assisted to sit at side of bed x2 nurses to eat breakfast with father. Care ongoing.
--- NOTE | 2018-11-10 11:40 | NUR ---
Dr. Marquez rounds at this time and is updated to morning events, most recent labs and order per Dr. Camilo. Dr. Marquez visits with patient and father who is at bedside at length and indicates a likely poor prognosis secondary to the rapid onset of respiratory failure this AM. Questions are invited, asked and answered. Father participates heavily in discussion. Patient is somewhat withdrawn. Care ongoing.
--- NOTE | 2018-11-10 11:57 | NUR ---
Lashanda, patient DPOA and mother is called and updated to morning events. All questions asked are answered. Mother is understanding of prognosis and states she will be in this afternoon. This is relayed to patient. Care ongoing.
--- NOTE | 2018-11-10 15:05 | NUR ---
Patient resting in bed visiting with guest titration to O2 completed by RT. See associated documentation. Care ongoing.
--- NOTE | 2018-11-10 15:27 | NUR ---
Patient lives at home with her parents (Lashanda and Nehemiah) in [place], [place] and plans to return home upon her recovery. Patient receives support and care from her parents as needed, and at home they have a shower bench, wheelchair, and 3 walkers (no wheels, wheels, and seated walker) for patient to use for mobility assistance as needed. Patient most often uses a wheeled/seated walker in public places or the electric scooters that stores offer. Patient is currently undergoing chemotherapy and has had her 2nd dose of [place] and her nexy chemotherapy is 11/22/18 and her next follow up appointment with Dr. Johan Crespo is 11/20/18 and she has labs weekly. Patient has stage 4 breast cancer with metastasis to her brain, lungs, liver and bones. Patient's primary care physician is Dr. Juli Clakr, her [facility] is [facility] and she does have DPOA-HC completed (primary = Nehemiah Tesfaye, secondary = Lashanda Tesfaye). No further needs at this time and manager social media will follow as needed.
--- NOTE | 2018-11-10 18:11 | NUR ---
Patient sleeping with mother at bedside. Care ongoing.
[2018-11-11] VITALS (1362 sets, daily range): BP systolic 98–125; BP diastolic 46–85; PULSE 121–136; TEMP 97.7–98.9; O2SAT 44–100
--- NOTE | 2018-11-11 00:16 | NUR ---
Pt resting on right in bed, denies any pain or shortness of breath and states she is comfortable, tyler remains in place. pt a/o x 3, lung clear upper dim in bases, BG noted to be running on highside, will continue to monitor. Generaized edema noted +2 - +3, pulses still palpable. Will continue to moniotr pt and up date providers as needed.
[2018-11-11 05:13] LABS: MEAN CELL VOLUME 92 fl (80.0-100.0); MEAN CORPUSCULAR HGB CONC 30 g/dl (33.0-37.0); MEAN PLATELET VOLUME 10.1 fl (7.4-10.4); PLATELET COUNT 177 K/mm3 (130-400); RED BLOOD COUNT 3.37 M/mm3 (4.10-5.30); REDCELL DISTRIBUTION WIDTH-CV 16.4 % (11.5-14.5)
[2018-11-11 05:15] LABS: HEMATOCRIT 30.9 % (37.0-47.0); HEMOGLOBIN 9.3 g/dl (12.5-16.0); MEAN CORPUSCULAR HEMOGLOBIN 28 pg (27.0-31.0)
[2018-11-11 05:37] LABS: ARTERIAL BLD GAS O2 SATURATION 95.5 % (92-100); ARTERIAL BLOOD GAS BASE EXCESS 4.4 (-2-2); ARTERIAL BLOOD GAS HCO3 27.8 meq/L (22-26); ARTERIAL BLOOD GAS PCO2 37.1 mmHg (35-45); ARTERIAL BLOOD GAS PO2 86.3 mmHg (80-100); ARTERIAL BLOOD GAS pH 7.49 (7.35-7.45)
[2018-11-11 05:52] LABS: ANISOCYTOSIS 1+; BAND 64 % (0-10); HYPOCHROMIA 1+; LYMPHOCYTE 6 % (20.0-51.0); METAMYELOCYTE 2 % (0-0); NEUTROPHILS 22 % (42.0-75.2); PLATELET ESTIMATE NORMAL (NORMAL)
[2018-11-11 05:54] LABS: STOMATOCYTE 1+
--- NOTE | 2018-11-11 07:15 | NUR ---
Report recieved from [facility]. Patient resting quietly with O2 HF NC on at this time. Offers no S/S discomfort. Call light at side
[2018-11-11 07:27] LABS: ALBUMIN 2.7 gm/dL (3.5-5.0); BILIRUBIN,TOTAL 0.7 mg/dL (0.0-1.0); CALCIUM 7.8 mg/dL (8.4-10.2); CREATININE, serum 1.62 (0.52-1.25); TOTAL PROTEIN 5.4 gm/dL (6.4-8.2)
[2018-11-11 07:28] LABS: POTASSIUM 2.9 mmol/L (3.4-5.0)
--- NOTE | 2018-11-11 08:00 | NUR ---
Patient A/Ox4 with morning assessment. When mom got here, states patient was mumbling/talking to self. Will monitor to see if this continues. No other concerns voiced at this time.
[2018-11-11 08:12] LABS: PATHOLOGY DIFF REVIEW OK
--- NOTE | 2018-11-11 09:51 | NUR ---
SW rounded with the team. A pallative care consult was ordered. SW will continue to follow.
--- NOTE | 2018-11-11 14:38 | NUR ---
Initial visit; Family and Aeriel thanked Communications Engineering Technician for offering spiritual care; especially appreciated was prayer with the whole family. Communications Engineering Technician left card and reiterated the availability of Communications Engineering Technician Care at [facility] is around the clock.
--- NOTE | 2018-11-11 15:24 | NUR ---
I met with pt, her mother Lashanda, and father Robbin today. Both parents seem to be understanding how serious Aerial's condition is but still want to keep fighting as long as possible. That is our goal--to keep fighting. Robbin is writing down everything he is told and is tearful. Lashanda is very concerned about her only child and "doesn't want to give up on her" Pt remains a full code. She reports that her goal is to keep fighting. When asked about her new chemotherapy, she replies "it is ok". She reports feeling weaker and more tired. Not sure if it is effecting her pain at all. Asked if she could tell us when she is ready to stop fighting and replied "I don't know" "I'm not sure". Will follow up tomorrow.
--- NOTE | 2018-11-11 17:20 | NUR ---
In to do end of shift cares and patient is laying in bed, with eyes closed mumbling to self. When asked if any thing is wrong, states "no, just the wires are funny." Monitor wires straightened out, states "that's better, thanks". But this RN has noticed patient does frequently appear to be talking/mumbling to self and when asked states doesn't know what she was saying. Mom has noted that she doesn't have this happen at home, today is the first time she's notice the patient doing it. Talked with mom about possible progession of disease vs neurological changes, doesn't want at changes at this time, will just monitor for tonight and readdress tomorow. Mom asks if she can stay in room tonight and given the change in patient status, mom told yes she could stay.
--- NOTE | 2018-11-11 19:00 | NUR ---
Report received by Cathy Pandey RN. Pt sitting on edge of bed with mother at bedside attempting to fix the sheets under pt. Pt requested her Ambien at thtis time. Agreement was received to change pts bedding prior to administration of evening medications.
--- NOTE | 2018-11-11 19:15 | NUR ---
Report given to Gloria GRIGGS
--- NOTE | 2018-11-11 20:30 | NUR ---
Pt assessment is complete. Pt resting in bed. Able to assist one staff member with turning in bed to change linens at this time. Fentanyl patches X2 present to right posterior shoulder. Multiple skin issues documented in chart. PICC dressing to left upper arm has dark purple bruising as well as what appears to be dried drainage present at this time. Pt mumbles with words although is A&O X4 at this time. Is able to make wants and needs known to staff. Mother remains at bedside.
[2018-11-12] VITALS (1195 sets, daily range): BP systolic 119–134; BP diastolic 80–91; PULSE 119–132; TEMP 97.8–98.5; O2SAT 56–100
--- NOTE | 2018-11-12 01:45 | NUR ---
While in the pt room pt had woken up and requested some Milk which was obtained and provided to pt. Expiration date assessed prior to providing it to the pt. Pt reported pain the right leg although continued to deny the need for pain medicine. Pt was assisted with repositioning at this time.
[2018-11-12 06:06] LABS: MEAN CELL VOLUME 93 fl (80.0-100.0); MEAN CORPUSCULAR HGB CONC 29 g/dl (33.0-37.0); MEAN PLATELET VOLUME 10.4 fl (7.4-10.4); PLATELET COUNT 165 K/mm3 (130-400); RED BLOOD COUNT 3.25 M/mm3 (4.10-5.30); REDCELL DISTRIBUTION WIDTH-CV 16.4 % (11.5-14.5)
[2018-11-12 06:10] LABS: HEMATOCRIT 30.2 % (37.0-47.0); HEMOGLOBIN 8.8 g/dl (12.5-16.0); MEAN CORPUSCULAR HEMOGLOBIN 27 pg (27.0-31.0)
[2018-11-12 06:14] LABS: INR 1.1 (0.8-3.0); PROTHROMBIN TIME 13.3 SECONDS (9.7-12.8)
[2018-11-12 06:33] LABS: ALBUMIN 2.8 gm/dL (3.5-5.0); BILIRUBIN,TOTAL 0.5 mg/dL (0.0-1.0); CALCIUM 7.9 mg/dL (8.4-10.2); CREATININE, serum 2.66 (0.52-1.25); MAGNESIUM 1.7 mg/dL (1.6-2.3); TOTAL PROTEIN 5.5 gm/dL (6.4-8.2)
[2018-11-12 07:08] LABS: BAND 20 % (0-10); LYMPHOCYTE 8 % (20.0-51.0); NEUTROPHILS 67 % (42.0-75.2); PLATELET ESTIMATE NORMAL (NORMAL)
--- NOTE | 2018-11-12 07:20 | NUR ---
Pt report provided to Cathy Pandey RN.
--- NOTE | 2018-11-12 09:00 | NUR ---
PICC intact left upper arm. reviewed this am chest x ray with Dr. Crockett. Tip location noted with coil in subclavian vein. Explained concerns for pulling catheter back such as tip will no longer be in the SVC and potential for no blood return. Patient has a need for more vascular access then implanted port. patient's arms are edematous with no means of supporting a PIV. A triple lumen placement is an option. However, patient's neck is short and stocky. At this time, the decision was made to leave PICC as is. Continue to monitor. with sterile technique left upper arm dressing change done with insertion site cleansed with chloraprep x 1, chlorhexidine impregnated disk applied, skin prep, stat lock, and tegaderm applied. no concerns voiced. small amount of dried reddish drainage noted on disk. no further drainage noted. will continue to monitor.
--- NOTE | 2018-11-12 09:08 | NUR ---
Follow-up: Caden gibson Communications Planner spoke with Mom offering spiritual care.
--- NOTE | 2018-11-12 10:43 | NUR ---
Long conversation with Caden, her parents, Dr Keller and myself this am. Pt listened but offered little conversation until at the end of discussion. Parents and Aerial heard concerns regarding respiratory status, kidney status, heart, and ongoning cancer concerns. They are aware that her numbers are getting worse and that there is concern that she may not improve. Kalyani has always wanted to fight hard but today she did listen as we discussed what resuscitation is, that a respirator is very likely in her condition, especially around a code situation. We talked about what comfort care is and what it would involve. She is not ready for comfort care at this time, still wants to see if some of the treatments they are trying today may work, but she did admit one of her biggest concerns is pain and that she would want it controlled when was occuring. She is also wanting to see her two dogs and her parent assured her that they would take good care of them for her. She is very aware that this is her decision and did express the desire not to be coded in front of her parents. Primary nurse was advised as was Dr Keller per primary nurse Cathy.
[2018-11-12 13:30] LABS: COLLECTION METHOD CLEAN CATCH
[2018-11-12 13:41] LABS: MUCOUS Present /lpf; PH 5 (5-8); SQUAMOUS EPITHELIAL 0-2 /hpf; URINE APPEARANCE Hazy; URINE BACTERIA None Seen /hpf; URINE BILIRUBIN Negative (NEGATIVE); URINE BLOOD 2+ (NEGATIVE); URINE COLOR Yellow; URINE GLUCOSE Negative (NEGATIVE); URINE KETONE Negative (NEGATIVE); URINE LEUKOCYTE ESTERASE Negative (NEGATIVE); URINE NITRATE Negative (NEGATIVE); URINE PROTEIN(semi-quant) 1+ (NEGATIVE); URINE UROBILINOGEN Negative (NEGATIVE)
--- NOTE | 2018-11-12 20:45 | NUR ---
Resting in bed playing a video game. Mother at bedside. No concerns at this time.
[2018-11-13] VITALS (1285 sets, daily range): BP systolic 114–142; BP diastolic 70–94; PULSE 70–120; TEMP 97.5–98.6; O2SAT 59–100
--- NOTE | 2018-11-13 05:00 | NUR ---
Dressing to right foot and ankle changed. Scant amount of yellowish drainage noted. Raw area on lateral ankle where patient had scratched. Placed benadryl cream to site and re-wrapped. No other concerns at this time.
[2018-11-13 05:31] LABS: MEAN CELL VOLUME 92 fl (80.0-100.0); MEAN CORPUSCULAR HGB CONC 30 g/dl (33.0-37.0); MEAN PLATELET VOLUME 9.9 fl (7.4-10.4); PLATELET COUNT 113 K/mm3 (130-400); REDCELL DISTRIBUTION WIDTH-CV 16.8 % (11.5-14.5)
[2018-11-13 05:34] LABS: HEMATOCRIT 26.6 % (37.0-47.0); INR 1.3 (0.8-3.0); MEAN CORPUSCULAR HEMOGLOBIN 28 pg (27.0-31.0); PROTHROMBIN TIME 15.4 SECONDS (9.7-12.8)
[2018-11-13 05:50] LABS: ALBUMIN 2.9 gm/dL (3.5-5.0); BILIRUBIN,TOTAL 0.5 mg/dL (0.0-1.0); CALCIUM 8.1 mg/dL (8.4-10.2); CREATININE, serum 2.81 (0.52-1.25); MAGNESIUM 2.4 mg/dL (1.6-2.3); POTASSIUM 3.8 mmol/L (3.4-5.0); TOTAL PROTEIN 5.4 gm/dL (6.4-8.2)
[2018-11-13 05:53] LABS: ANISOCYTOSIS 1+; BAND 50 % (0-10); LYMPHOCYTE 8 % (20.0-51.0); METAMYELOCYTE 1 % (0-0); NEUTROPHILS 40 % (42.0-75.2); OVALOCYTES 1+; PLATELET ESTIMATE DECREASED (NORMAL)
[2018-11-13 05:54] LABS: HYPOCHROMIA 1+
[2018-11-13 05:57] LABS: DOHLE BODIES PRESENT
--- NOTE | 2018-11-13 09:08 | NUR ---
Follow-up visit; Patient's mother thanked for looking in on the sleeping Aeriel and stated she might want to talk later.
--- NOTE | 2018-11-13 10:59 | NUR ---
SW rounded with the team. Pt to stay in ICU at this time. SW will continue to follow.
--- NOTE | 2018-11-13 11:00 | NUR ---
Palliative care nurse rounded with treatment team this morning. Pt reports she had a "pretty good" night and wants to continue trying to get better at this point. No new needs identified by pt or mother.
--- NOTE | 2018-11-13 19:24 | NUR ---
Bedside report given to ANSON Lynch.
--- NOTE | 2018-11-13 20:15 | NUR ---
Re-dressed bandage to right foot. PRN benadryl cream applied for itching. Denies any other needs at this time. Will continue to monitr.
[2018-11-14] VITALS (1072 sets, daily range): BP systolic 124–137; BP diastolic 76–96; PULSE 108–123; TEMP 97.6–98.3; O2SAT 67–100
--- NOTE | 2018-11-14 02:30 | NUR ---
PRN pain medication administered for back and leg pain. Assisted with repositioning. No other complaints at this time. Will continue to monitor.
[2018-11-14 07:18] LABS: MEAN CELL VOLUME 90 fl (80.0-100.0); MEAN CORPUSCULAR HGB CONC 31 g/dl (33.0-37.0); MEAN PLATELET VOLUME 10.5 fl (7.4-10.4); PLATELET COUNT 107 K/mm3 (130-400); RED BLOOD COUNT 3.03 M/mm3 (4.10-5.30); REDCELL DISTRIBUTION WIDTH-CV 16.9 % (11.5-14.5)
[2018-11-14 07:24] LABS: ALBUMIN 2.9 gm/dL (3.5-5.0); BILIRUBIN,TOTAL 0.5 mg/dL (0.0-1.0); CALCIUM 8.5 mg/dL (8.4-10.2); CREATININE, serum 2.94 (0.52-1.25); POTASSIUM 3.8 mmol/L (3.4-5.0); TOTAL PROTEIN 5.5 gm/dL (6.4-8.2)
--- NOTE | 2018-11-14 07:25 | NUR ---
Bedside report received from ANSON Lynch.
[2018-11-14 07:28] LABS: HEMATOCRIT 27.4 % (37.0-47.0); HEMOGLOBIN 8.4 g/dl (12.5-16.0); MEAN CORPUSCULAR HEMOGLOBIN 28 pg (27.0-31.0)
[2018-11-14 07:52] LABS: BAND 48 % (0-10); LYMPHOCYTE 4 % (20.0-51.0); METAMYELOCYTE 1 % (0-0); MYELOCYTE 1 % (0-0); NEUTROPHILS 45 % (42.0-75.2); NUCLEATED RED BLOOD CELL 1 (0-6); PLATELET ESTIMATE DECREASED (NORMAL)
[2018-11-14 07:53] LABS: ANISOCYTOSIS 1+; DOHLE BODIES PRESENT; HYPOCHROMIA 2+; POLYCHROMASIA 1+
[2018-11-14 08:10] LABS: ARTERIAL BLD GAS O2 SATURATION 95.9 % (92-100); ARTERIAL BLD GAS TCO2 CT 24.2; ARTERIAL BLOOD GAS BASE EXCESS -1.6 (-2-2); ARTERIAL BLOOD GAS HCO3 23.1 meq/L (22-26); ARTERIAL BLOOD GAS PCO2 38.1 mmHg (35-45); ARTERIAL BLOOD GAS PO2 92.9 mmHg (80-100)
--- NOTE | 2018-11-14 08:50 | NUR ---
Assessment complete, AM care completed, patient repositioned for comfort. Call light within reach.
--- NOTE | 2018-11-14 10:23 | NUR ---
Follow-up visit; Patient's mom thanked for looking in on Caden and herself.
--- NOTE | 2018-11-14 11:56 | NUR ---
Met with pt's father at bedside. He expressed concern about "not giving up on Caden" but also about not being able to take care of her at home. He shared having a bad experience at [facility]. Advised that there are two other assisted homes in [place] and he also asked about in [place] which would be [place]. At that time we also talked about the [facility] for end of life care. We reviewed what hospice services are and that these would be appropriate if Caden decides not to pursue further treatment and is wanting to focus on comfort not treatment. The pt and family still maintain they want aggressive care now but are realizing that this is very worrisome and that things may not improve. Support provided.
--- NOTE | 2018-11-14 14:00 | NUR ---
Patient repositioned for comfort, dad at bedside.
--- NOTE | 2018-11-14 19:07 | NUR ---
Bedside report given to ANSON Lynch.
--- NOTE | 2018-11-14 20:00 | NUR ---
Assessment complete; changed bandage to right foot. Foot weeping small amount of clear fluid. Benadryl cream placed on ankle and foot for itching. Reports being comfortable in current position. Denies any other needs at this time. Will continue to monitor.
--- NOTE | 2018-11-14 22:03 | NUR ---
Patient refused offer for bedbath. Offered to assist with repositioning. Patient stated she was very comfortable in her current position. Requested to be repositioned only as needed.
[2018-11-15] VITALS (937 sets, daily range): BP systolic 116–130; BP diastolic 74–96; PULSE 114–124; TEMP 97.5–99.3; O2SAT 57–100
--- NOTE | 2018-11-15 02:05 | NUR ---
Repositioned per patient request. No further complaints or concerns at this time. Will continue to monitor.
[2018-11-15 05:18] LABS: MEAN CELL VOLUME 92 fl (80.0-100.0); MEAN CORPUSCULAR HGB CONC 30 g/dl (33.0-37.0); MEAN PLATELET VOLUME 9.3 fl (7.4-10.4); PLATELET COUNT 93 K/mm3 (130-400); RED BLOOD COUNT 2.91 M/mm3 (4.10-5.30)
[2018-11-15 05:20] LABS: HEMATOCRIT 26.7 % (37.0-47.0); MEAN CORPUSCULAR HEMOGLOBIN 27 pg (27.0-31.0)
[2018-11-15 05:21] LABS: INR 1.3 (0.8-3.0); PROTHROMBIN TIME 15.2 SECONDS (9.7-12.8)
[2018-11-15 05:30] LABS: ALBUMIN 2.8 gm/dL (3.5-5.0); BILIRUBIN,TOTAL 0.4 mg/dL (0.0-1.0); CALCIUM 8.7 mg/dL (8.4-10.2); CREATININE, serum 2.95 (0.52-1.25); POTASSIUM 3.9 mmol/L (3.4-5.0); TOTAL PROTEIN 5.5 gm/dL (6.4-8.2)
[2018-11-15 05:39] LABS: ANISOCYTOSIS 1+; BAND 26 % (0-10); LYMPHOCYTE 7 % (20.0-51.0); METAMYELOCYTE 1 % (0-0); NEUTROPHILS 60 % (42.0-75.2); PLATELET ESTIMATE DECREASED (NORMAL)
--- NOTE | 2018-11-15 06:40 | NUR ---
02 noted to be 89-92%. AIRVO cannula checked and in proper place in nostrils. no kinks in tubing noted. RT called to adjust settings.
--- NOTE | 2018-11-15 07:15 | NUR ---
Bedside report given to ANSON Titus. Patient care transfered.
--- NOTE | 2018-11-15 08:30 | NUR ---
PICC intact left upper arm with lower edge of dressing not intact. with sterile technique left upper arm dressing change done with insertion site cleansed with chloraprep x 1, chlorhexidine impregnated disk applied, skin prep, stat lock, and tegaderm applied. no signs or symptoms of IV complications noted. no concerns voiced. re-wrapped with tarik to protect catheter.
--- NOTE | 2018-11-15 11:54 | NUR ---
Bedside shift report received from ANSON Lynch. Patient is sleeping at this time and does not appear to be in any distress. Patient arouses to voice. Full assessment completed and documented. Bed in lowest position. Call light within reach. Side rails up x3.
--- NOTE | 2018-11-15 13:21 | NUR ---
Met with pt and her father this morning. They reports an OK night. During rounds pt did choke on her ensure. Father reports that she has in the past recieved injections is her throat to help keep her from having trouble swallowing. 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 She still reports wanting to remain on all supportive measures to allow improvement if it can occur.
--- NOTE | 2018-11-15 16:32 | NUR ---
Patient continued to rest, sleeping on and off throughout the day. Patient receiving oxygen via high flow nasal cannula. Vital signs remain stable and the patient has no complaints or concerns at this time. Call light within reach. Family add bedside throughout the day. Bed in lowest position. Side rails up x3 at this time.
--- NOTE | 2018-11-15 17:35 | NUR ---
Bedside shift report given to ANSON Carver. Patient remains stable with no complaints or concerns. Call light within reach.
--- NOTE | 2018-11-15 17:36 | NUR ---
Bedside report received from ANSON Titus. Speech therapy at bedside. Pt's family assisting pt with dinner. Call light in reach.
--- NOTE | 2018-11-15 19:32 | NUR ---
Report given to ANSON Littlejohn.
[2018-11-16] VITALS (477 sets, daily range): BP systolic 107–134; BP diastolic 57–95; PULSE 112–120; TEMP 97.7–98.8; O2SAT 79–100
[2018-11-16 05:27] LABS: MEAN CELL VOLUME 92 fl (80.0-100.0); MEAN CORPUSCULAR HGB CONC 30 g/dl (33.0-37.0); MEAN PLATELET VOLUME 10.6 fl (7.4-10.4); PLATELET COUNT 90 K/mm3 (130-400); RED BLOOD COUNT 2.86 M/mm3 (4.10-5.30); REDCELL DISTRIBUTION WIDTH-CV 17.2 % (11.5-14.5)
[2018-11-16 05:29] LABS: HEMATOCRIT 26.4 % (37.0-47.0); HEMOGLOBIN 7.9 g/dl (12.5-16.0); MEAN CORPUSCULAR HEMOGLOBIN 28 pg (27.0-31.0)
[2018-11-16 05:47] LABS: ANISOCYTOSIS 1+; BAND 32 % (0-10); LYMPHOCYTE 6 % (20.0-51.0); METAMYELOCYTE 2 % (0-0); MYELOCYTE 1 % (0-0); NEUTROPHILS 54 % (42.0-75.2); PLATELET ESTIMATE DECREASED (NORMAL)
--- NOTE | 2018-11-16 07:16 | NUR ---
gave report to rocky cantrell.
[2018-11-16 07:54] LABS: ALBUMIN 2.8 gm/dL (3.5-5.0); BILIRUBIN,TOTAL 0.4 mg/dL (0.0-1.0); CREATININE, serum 2.99 (0.52-1.25); POTASSIUM 4.3 mmol/L (3.4-5.0); TOTAL PROTEIN 5.5 gm/dL (6.4-8.2)
--- NOTE | 2018-11-16 15:25 | NUR ---
Pt up to room at this time. Escorted by Precious in bed.
--- NOTE | 2018-11-16 16:30 | NUR ---
patient assessed, oriented to room. Pt laying in bed comfortably on 20L high flow Airvo O2. MELVIN PICC patent with blood return. Lt chest port covered with gauze, CDI. patient received zosyn and lasix. Lung sounds wheezing, productive cough. Frey in place draining clear yellow urine. Generalized edema all over. Bruising to Lt upper arm near PICC. Scaling/flaking to feet and ankles bilaterally. Rt ankle dressing changed, weeping noted. Bruising and redness to legs bilaterally. Pt denies other needs at this time.
--- NOTE | 2018-11-16 19:29 | NUR ---
Report given to anson gordon. patient ordered dinner. Requested pain medication, administered by ANSON Gordon. Call light within reach. No other needs.
--- NOTE | 2018-11-16 21:00 | NUR ---
PT RESTING IN BED aA+OX4. WITH MOTHER AT BEDSIDE. PT HAS 3+ GENERALIZED EDEMA. LEFT LEG HAS CLEAR WEEPING, WRAPPED WITH GAUZE AT THIS TIME. PT ON UNIVO fIO2 63% AT 20L/MIN-RT VARAFIED. PICC FLUSHES WELL, BLOOD RETURN NOTED X2. PORT-A-CATH FLUSHES WELL, BLOOD RETURN NOTED. DRESSING DCI. PT REPORTS LEG PAIN- PRN MEDS GIVEN. REPORT RELIEF. NO NEEDS AT THIS TIME CALL LIGHT IN REACH
[2018-11-17 04:44] VITALS: BP 129/77; PULSE 118; TEMP 98.2
--- NOTE | 2018-11-17 05:00 | NUR ---
PT HAD AN UNEVENTFUL NIGHT. PT DROWSY BUT OX4. AIRVO IN PLACE RT CHANGED SETTINGS TO 44% 20L/MIN. PICC FLUSHES WELL, BLOOD RETURN NOTED. PORT-A-CATH FLUSHES WELL, BLOOD RETURN NOTED. GENERALIZED EDEMA 2-3+. LEFT LEG WEEPING- DRESSING CHANGED. PT LUNGS CLEAR BUT AUDIBLE CONGESTION NOTED. DIAMOND DRAINING FREELY DURING NIGHT, NO KINKS, SECURED TO LEG. YELLOW URINE NOTED WITH MINIMAL SEDIMENT. REPORTED 6/10 PAIN DURING NIGHT PRN PAIN MEDS GIVEN NEEDED. PTS MOTHER STAYED DURING NIGHT. PT REPORTS NO NEEDS AT THIS TIME. CALL IGHT IN REACH. REPORT GIVEN TO ANSON Keller
[2018-11-17 06:46] LABS: MEAN CELL VOLUME 94 fl (80.0-100.0); MEAN CORPUSCULAR HGB CONC 30 g/dl (33.0-37.0); MEAN PLATELET VOLUME 10.7 fl (7.4-10.4); PLATELET COUNT 102 K/mm3 (130-400); RED BLOOD COUNT 2.81 M/mm3 (4.10-5.30); REDCELL DISTRIBUTION WIDTH-CV 17.3 % (11.5-14.5)
[2018-11-17 06:51] LABS: HEMATOCRIT 26.3 % (37.0-47.0); HEMOGLOBIN 7.8 g/dl (12.5-16.0); MEAN CORPUSCULAR HEMOGLOBIN 28 pg (27.0-31.0)
[2018-11-17 06:55] LABS: BILIRUBIN,TOTAL 0.4 mg/dL (0.0-1.0); CALCIUM 9.6 mg/dL (8.4-10.2); CREATININE, serum 3.16 (0.52-1.25); POTASSIUM 4.2 mmol/L (3.4-5.0); TOTAL PROTEIN 5.8 gm/dL (6.4-8.2)
[2018-11-17 07:00] LABS: VANCOMYCIN,RANDOM 14.86 ug/mL
[2018-11-17 07:49] VITALS: BP 139/79; PULSE 115; TEMP 97.6
[2018-11-17 08:08] LABS: ANISOCYTOSIS 1+; BAND 40 % (0-10); HYPOCHROMIA 2+; LYMPHOCYTE 10 % (20.0-51.0); METAMYELOCYTE 2 % (0-0); MYELOCYTE 2 % (0-0); NEUTROPHILS 44 % (42.0-75.2); NUCLEATED RED BLOOD CELL 2 (0-6); PLATELET ESTIMATE NORMAL (NORMAL)
--- NOTE | 2018-11-17 09:52 | NUR ---
Pt assessment complete and charted. Pt sleeping in bed easy to arouse, mom at bedside. Morning medications administered per JUL. Pt states she is feeling "sleepy". Pt bilateral lower extremities cool to touch, right leg/ankle wheeping. Gauze dressing covering right ankle. Pt on 20L high flow O2. MELVIN PICC patent with good blood return. Purple port difficult to flush, no fluids running. No other needs at this time. Call light within reach.
--- NOTE | 2018-11-17 10:40 | NUR ---
Pt repositioned, dad and aunt in room. This nurse and aide assisted in holding patient while aunt massaged back for a few. Pt denies needs at this time. Pt very sleepy but will answer questions and follow commands.
[2018-11-17 12:08] VITALS: BP 136/88; PULSE 121
--- NOTE | 2018-11-17 12:22 | NUR ---
Pt sleeping, arousable by speech and touch but minimal to slow response. Pt denies pain at this time. Zosyn going. Red port difficult to flush. Pt dad and aunt at bedside.
[2018-11-17 15:16] VITALS: BP 122/71; PULSE 122; TEMP 97.5
--- NOTE | 2018-11-17 19:04 | NUR ---
Patient dressing on MELVIN PICC changed. Due for change tomorrow, sponge looked bloody. PICC in place, no complications. Purple port patent, good blood return. Red port unable to flush. Patient received percocet per JUL PRN. Rt ankle dressing changed. Frey emptied, pale yellow urine with sediment. Pt repositioned in bed, heels floated. No other needs. Call light within reach. Report given to ANSON Villafuerte.
[2018-11-17 20:02] VITALS: BP 128/77; PULSE 126; TEMP 99.3
--- NOTE | 2018-11-17 22:00 | NUR ---
PT RESTING IN BED A+OX4. REPORTED MINIMAL PAIN REPORTS NO NEEDS FOR PAIN MEDS AT THIS TIME. PICC RED LINE DOES NOT FLUSH AT THIS TIME- PT LAYING IN LEFT SIDE- WILL REASSESS WHEN PT TURNS. PURPLE PICC LINE FLUSHES BLOOD RETURN NOTED. PORT-A-CATH FLUSHES- NO BLOOD RETURN- WILL REASSESS WHEN PT TURNS TO RIGHT SIDE. PT HAS 3-4+ EDEMA GENERALIZED. LOWER EXTREMITIES HAVE 4+ EDEMA- WEEPING NOTED AND WRAPPED RIGHT LEG. LUNGS DIMINISHES BUT CLEAR. CONGESTION NOTED. MOTHER IN ROOM. NO NEEDS AT THIS TIME.CALL LIGHT IN REACH
[2018-11-18] VITALS (7 sets, daily range): BP systolic 108–143; BP diastolic 45–83; PULSE 119–126; TEMP 97.7–99.1
--- NOTE | 2018-11-18 04:22 | NUR ---
pt turned q2h. picc x2 flushes with blood return noted. port-a-cath flushes with blood return noted. tyler draining freely, no kinks. secured to leg. pt reports minimal pain, pain pill given as needed. bilat legs have 4+. right leg dressing saturated- changed to new dry dressing. no needs at this tiem. call light in reach
[2018-11-18 06:01] LABS: MEAN CELL VOLUME 94 fl (80.0-100.0); MEAN CORPUSCULAR HGB CONC 29 g/dl (33.0-37.0); MEAN PLATELET VOLUME 11.2 fl (7.4-10.4); PLATELET COUNT 122 K/mm3 (130-400); RED BLOOD COUNT 2.75 M/mm3 (4.10-5.30); REDCELL DISTRIBUTION WIDTH-CV 17.7 % (11.5-14.5)
[2018-11-18 06:07] LABS: CREATININE, serum 3.16 (0.52-1.25); POTASSIUM 4.5 mmol/L (3.4-5.0)
[2018-11-18 06:10] LABS: HEMATOCRIT 25.7 % (37.0-47.0); HEMOGLOBIN 7.5 g/dl (12.5-16.0); MEAN CORPUSCULAR HEMOGLOBIN 27 pg (27.0-31.0)
--- NOTE | 2018-11-18 06:33 | NUR ---
PT HAD AN UNEVENTFUL NIGHT. PT RATTLES/GUGGLES WHILE BREATHING, MARGOTH INFORMATION ASSURANCE NOTIFIED. SPEECH CONSULTED. 4+ EDEMA THROUGOUT BODY. WEEPING IN THE RIGHT LEG- DRESSIGNN CHANGED. PT ON AIRVO ON- RT SET SETTINGS. MIRALAX AND COLACE ORDERED FOR BM. REPORTS NO NEEDS. MOTHER IN ROOM.BED ALRM ON. CALL LIGHT IN REACH
[2018-11-18 07:09] LABS: BAND 5 % (0-10); BASOPHIL 1 % (0-2); LYMPHOCYTE 19 % (20.0-51.0); NEUTROPHILS 73 % (42.0-75.2); NUCLEATED RED BLOOD CELL 1 (0-6); PLATELET ESTIMATE DECREASED (NORMAL)
--- NOTE | 2018-11-18 07:24 | NUR ---
report given to rocky zamora
--- NOTE | 2018-11-18 09:45 | NUR ---
Pt remains on airvo and is reporting being quite sleepy when seen this am. Her mother is at bedside. She is very aware that her kidney function has worsened and that now she has a rattle with respirations. Family and Aerial are still wanting to do everything that they can to allow her to recover if possible but they are also aware that we are doing everything we can to support her without clear progress.
--- NOTE | 2018-11-18 10:09 | NUR ---
Follow-up visit; Pet Training Instructor offered spiritual care to Mom and prayed a blessing for Caden. Again, Pet Training Instructor let mom know of her availability.
--- NOTE | 2018-11-18 10:29 | NUR ---
SW attended clinical rounds. The hospitalist discussed the patient's prognosis and hospice. The patient and patient's mother report that they would like for the patient to return home. Plan is to start titrating the patient's oxygen down, when the patient and her family are ready, to then transition back home on hospice. SW to continue to follow.
--- NOTE | 2018-11-18 10:45 | NUR ---
Patient assessment complete and charted. Pt family at bedside. Pt resting/sleeping in bed w/ 20L high flow nasal cannula on. Patient is very sleepy, slow to respond but alert and will answer. Pt c/o of nose being irritated, RT came up to assess and change temp on Airvo. Pt denies pain medication at this time. Pt RT ankle dressing changed using ABD pads and kerlex. Pt tyler draining pale yellow urine w/ sediment. MELVIN PICC, purple port flushing well w/ good blood return. Red port unable to flush. Bruising noted around MELVIN PICC. Per Libby she was a hard stick. Patient repositioned in bed, pillows placed under right side, per Pt request she wanted to be more on her left. Morning PO meds not admnistered due to patient being very sleepy and unable to stay awake long enough. Morning ABX administered per JUL. No other needs at this time. Call light within reach.
--- NOTE | 2018-11-18 10:59 | NUR ---
JONATAN collaborated with palliative care nurse, Stephanie. Depending on how the patient does with titrating off of the oxygen, the patient's mother would like hospice in the home from [facility]. JONATAN contacted and faxed a referral to Olivia at [facility]. SW awaiting their screen.
--- NOTE | 2018-11-18 14:00 | NUR ---
Hospitalist and Stephanie Pike have met with patient and family this morning to discuss POC. Pt and family starting to get on same page and coming to agreement on plan moving forward. Pt has been sleepy most of the day, occasionally awake to attempt to eat. Pt has had a few bites of food throughout the day. per mom she is taking in fluids. Pt repositioned to back with pillows under arms. No other complaints at this time, denies pain medication.
--- NOTE | 2018-11-18 15:00 | NUR ---
This nurse met with Pts mom and dad to discuss POC. Dad is concerned with "removing O2 and dsicontinuing care". Mom and dad don't seem to be on the same page and are going back and forth now as far as what to do moving forward. Will discuss with hospitalist and have her visit with Pt and family again.
--- NOTE | 2018-11-18 16:34 | NUR ---
Met with mother and her sister at bedside along with Aerial. They are realizing that she is getting closer to and are now ready to start the weaning process. If Aerial is able to survive until tomorrow, we will pursue hospice house admission. I did call and notify Jeff, manager social media, of the change in plans from previous information sent by Ivonne Corral [facility]. Support provided to family and patient and will present comfort quilt for use as they wish. I did notify Dr Lake of this decision and she will talk with them again herself and then proceed with weaning process after medication ( morphine/ativan) is given. Father is not at bedside at this time.
--- NOTE | 2018-11-18 17:30 | NUR ---
Hospitalist was going to visit with pt and family to discuss titrating O2 and making patient comfortable with anxiety and pain medication this evening. Family requested to let Pt eat first. Family then came to agreement to hospice house which can't accept her until Sunday. Family would like to titrate O2 at the latest possible time in order to hopefully get her to hospice house to be with dogs. This nurse discussed with hospitalist and PA. Everyone in agreement that "whatever the family wishes and will make the Pt comfortable is ok". They will discuss tomorrow further plans as to when O2 will begin to be titrated. This nurse administered PRN morphine per JUL and pt request. All 2mg Ativan wasted in omnicell. Had originally drawn up 1MG dose to help with titrating O2 and making patient comfortable. Plans to titrate O2 today changed and pt didn't want the ativan yet. Patient requested morphine only for now, refused fentanyl patches as well. NO other needs at this time.
--- NOTE | 2018-11-18 19:25 | NUR ---
Report given to ANSON Villafuerte. patient in bed with mom at bedside. denies needs at this time and denies pain. pt has been pleasant and no complaints today. Noy will resume care.
--- NOTE | 2018-11-18 21:50 | NUR ---
PT RESTING IN BED a+oX4. REPORTS MINIMAL PAIN AT THIS TIME. DIAMOND DRAINING INDEPENDENTLY, NO KINKS, SECURED TO LEG. CLEAR YELLOW URINE NOTED. PICC- RED LINE DOES NOT FLUSHE, NO BLOOD RETURN NOTED. PURPLE LINE FLUSHES WITH BLOOD RETURN NOTED. PORT-A-CATH FLUSHES WITH NO BLOOD RETURN. LEFT ARM HAS BRUISING THROUGHOUT. PICC DRESSING IS DCI. LOWER LUNG THOMPSON CLEAR, UPPER LUNG THOMPSON COARSE. GENERIZED EDEMA 4+. WHEEPING NOTED ON RIGHT LEG. NO NEEDS AT THIS TIME. CALL LIGHT IN REACH
--- NOTE | 2018-11-18 23:30 | NUR ---
PT REPORT 9/10 PAIN IN HIPS/SPINE/LEGS- FETYNAL PATCH GIVEN PER MARGOTH, SAND HAULER ORDER. OTHER PAIN MEDS GIVEN. PT SLEEPING WHEN CHECKING FOR PAIN RELIEF. TURNING Q2H AND ON REQUEST. SACREAL REGION IS RED. DIAMOND DRAINING FREELY, NO KINKS, SECURED TO LEG- CLEAR YELLOW URINE. NO NEEDS AT THIS TIME CALL LIGHT INREACH
--- NOTE | 2018-11-19 05:29 | NUR ---
PT HAD AN UNEVENTFUL NIGHT. REPORTED PAIN IN HIPS/SPINE/LEGS- PRN MEDS GIVEN. TURNED Q2-Q3. PT SLEPT THROUGOUT NIGHT. VSS. DIAMOND DRAINING FREELY, NO KINKS, SECURED TO LEG. CLEAR YELLOW URINE NOTED. GENERAL 4+ EDEMA. WEEPING NOTED TO THE RIGHT LEG. PT ON AIRVO 20l. MOTHER AT BEDSIDE THROUGHOUT NIGHT. PICC- RED LINE DOES NOT FLUSHE. PURPLE FLUSHES WITH BLOOD RETURN NOTED. PORT-A-CATH FLUSHES WITH NO BLOOD RRETURN. BRUISING NOTED TO THE LEFT UPPER ARM. NO NEEDS AT THIS TIME. WILL CONTINUE TO MONITOR. CALL LIGHT IN REACH
[2018-11-19 07:28] VITALS: BP 117/81; PULSE 118; TEMP 98.1; TEMP 98.4
--- NOTE | 2018-11-19 07:31 | NUR ---
report given to rocky crawford. pt reports no needs
--- NOTE | 2018-11-19 08:36 | NUR ---
Assessment completed, lethargic and minimally responsive at this time, mother stated she is way more lethargic today than she has been recently, she is not able to take oral intake at this time, dressing changed to right lower extrm, 3-4+ edema with weeping, patient has 2-3+ edema generalized, she is completeley immobile and we are changing position frequently, tyler patent, she is on the Arvo possitive pressure 20L / 44% o2, mother present in the room, plan of dischare to hospice 11/20
--- NOTE | 2018-11-19 11:45 | NUR ---
PICC intact left upper arm with sterile technique left upper arm PICC dressing change done with insertion site cleansed with ChloraPrep 1, chlorhexidine impregnated disc applied, skin prep, StatLock, and Tegaderm applied. No signs or symptoms of IV complications noted. No concerns voiced. Arm wrapped with Benton to protect catheter. Father at the bedside.
[2018-11-19 12:20] VITALS: BP 132/87; PULSE 120; TEMP 99.1
--- NOTE | 2018-11-19 15:00 | NUR ---
Follow-up visit; Parents thanked Flavor Extractor for providing Spiritual Care throughout Caden's stay with us. Flavor Extractor listened, offering scripture and prayer for family. Chepe indicated she was listening by squeezing mom's hand while Flavor Extractor spoke with her parents and prayed for her.
[2018-11-19 15:45] VITALS: BP 124/82; PULSE 124; TEMP 98.6
[2018-11-19 20:13] VITALS: BP 120/90; PULSE 123; TEMP 98.9
--- NOTE | 2018-11-19 22:50 | NUR ---
Shift assessment complete. Patient in bed, appears comfortable. Breathing appears to be more labored, and more congested. Talked to patient's mother and she agreed to try the scopalomine patch. Patch placed behind right ear. Discussed roxanol with patient's Mom in length, and she declined trying the roxanol. Will continue to monitor. Denies further needs at this time.
--- NOTE | 2018-11-20 02:18 | NUR ---
Patient in bed, sleeping. Appears comfortable. Mom at bedside, sleeping. Will continue to monitor.
--- NOTE | 2018-11-20 04:07 | NUR ---
Patient in bed, sleeping. Respirations 12. Mom at bedside, sleeping. Patient appears comfortable. Breathing still congested. Will continue to monitor.
[2018-11-20 05:33] VITALS: BP 127/91; PULSE 129; TEMP 100.3
--- NOTE | 2018-11-20 06:22 | NUR ---
Patient in bed, arouses to name. Was able to tell her Mom that her leg was hurting her. 5mg po roxanol given. Repositioned to left side with pillows. Bed pad changed. Will continue to monitor.
--- NOTE | 2018-11-20 08:00 | NUR ---
Assessment completed, patient drowsy/ lethargic, she did open her eyes to light touch and when ask if in pain she nodded her head "yes"/ Roxanol given, vital signs unchanged/ still tachycardic, right leg weeping continues/ will changed dressing , mother in room, discharge planning for hospice today around 1300
[2018-11-20] MEDS ORDERED: MIRALAX PA17 GM/Dose PO (08:46)
[2018-11-20] MEDS ORDERED: TRANSDERM-0.5 MG/21 TD (08:46)
[2018-11-20] MEDS ORDERED: ZOFRAN ODT4 MG PO (08:47)
[2018-11-20] MEDS ORDERED: ROXANOL 20MG20 MG/ML SL (08:48)
[2018-11-20] MEDS ORDERED: ATIVAN 0.50.5 MG/TAB PO (08:48)
[2018-11-20 08:56] VITALS: BP 122/70; PULSE 123; TEMP 98
--- NOTE | 2018-11-20 09:25 | NUR ---
JONATAN had collaborated with palliative care nurse, Stephanie, on 11/18. The patient's family decided to pursue hospice at the hospice house. Stephanie updated Jeff at [facility].
--- NOTE | 2018-11-20 10:00 | NUR ---
discussed discharge plan with family in the room, plans for transfer to hospice around 1300, changed dressing to right leg at this time, offered repositioning
--- NOTE | 2018-11-20 10:17 | NUR ---
Follow up visit; Mom states Caden had a good night and is resting well. [facility] continues to be available for Caden and family.
--- NOTE | 2018-11-20 10:35 | NUR ---
Yared, at [facility], reports that they can accept the patient. The patient is in need of a bipap during transport and upon arrival at [facility]. Yared reports that they can provide a bipap. JONATAN provided Yared with the patient's bipap settings. The patient is to discharge today, 11/20, to [facility]. Transportation was set up for 1300, via [facility]. JONATAN informed the patient's mother, nurse, and Yared at [facility]. They were all in agreeance. JONATAN also presented and explained the IM form to the patient's mother. The patient's mother verbalized understanding, signed, and she was provided a copy. No additional needs at this time.
--- NOTE | 2018-11-20 13:18 | NUR ---
[facility] contacted Linen Grader and informed her that they would not be able provide transportation, due to not having a ssis developer. Linen Grader arranged transportation through [facility]. Our RT is to ride along with [facility] and the patient will use our bipap. The patient's parents are agreeable to this plan. JONATAN updated Yared at [facility] of transport time. No additional needs at this time.
--- NOTE | 2018-11-20 13:45 | NUR ---
patient discharging to Hospice house at this time, she is being transported by [facility] and is on bi-pap
== END 2018-11-20 13:45 | disposition hospice, inpatient (51) | DRG 193 ==
LOC: COL.ER 14:12 → ICU 17:03 → MEDICAL 11-16 15:04
PROVIDERS: Emergency Medicine; Hospitalist; Internal Medicine; Internal Medicine Critical Care Medicine; Physician Assistant; Student in an Organized Health Care Education/Training Program; ADMIT Student in an Organized Health Care Education/Training Program
PROC: 02HV33Z Insertion of Infusion Device into Superior Vena Cava, Percutaneous Approach (ICD-10-PCS; principal; 2018-11-11)
DX: J18.9 Pneumonia, unspecified organism (principal); J96.21 Acute and chronic respiratory failure with hypoxia; E87.2 Acidosis; C78.00 Secondary malignant neoplasm of unspecified lung; C78.7 Secondary malignant neoplasm of liver and intrahepatic bile duct; C79.31 Secondary malignant neoplasm of brain; C79.51 Secondary malignant neoplasm of bone; N17.9 Acute kidney failure, unspecified; J81.1 Chronic pulmonary edema; Z66 Do not resuscitate; Z51.5 Encounter for palliative care; D69.6 Thrombocytopenia, unspecified; C50.919 Malignant neoplasm of unspecified site of unspecified female breast; F32.9 Major depressive disorder, single episode, unspecified; D64.9 Anemia, unspecified; R74.0 Nonspecific elevation of levels of transaminase and lactic acid dehydrogenase [LDH]; G40.909 Epilepsy, unspecified, not intractable, without status epilepticus; G89.29 Other chronic pain; Z79.01 Long term (current) use of anticoagulants; Z88.8 Allergy status to other drugs, medicaments and biological substances; Z86.711 Personal history of pulmonary embolism
CPT/HCPCS: 99222; 99223-AI; 99231-AI; 99232-AI; 99233-AI; 99239; C1751; C1892; J1940; J2060; J2270; J2543; J3370; J3475; J3480; J7030; J7040; J7050; J8540; P9047